=== PATIENT | female | born 1955 | race Caucasian/White ===

== ENCOUNTER 2017-05-15 06:20 | Inpatient (IN) | payer BC ==
--- NOTE | 2017-05-01 18:20 | HP ---
HISTORY AND PHYSICAL: DATE OF ADMISSION: 05/15/17 This is a history and physical for hospital admission at the main campus on 09/21. CHIEF COMPLAINT: Left knee pain. HISTORY OF PRESENT ILLNESS: This 62-year-old woman is admitted for a left total knee replacement. She has had severe knee pain for many many years and the left knee pain has become intolerable and this has been not responsive to any further nonoperative care. A left total knee replacement has been recommended. PAST MEDICAL HISTORY: Positive for hypertension, arthritis, ulcers with GERD and esophagitis, hypothyroidism, anemia, depression, anxiety and fibromyalgia. She has had breast cancer with mastectomies bilaterally, breast reductions years ago, cardiac catheterization in 1985, status post hysterectomy. She recently found out she has got cholelithiasis. She had a left renal cancer and left nephrectomy and is followed carefully for this. CURRENT MEDICATIONS: Include: 1. Turmeric. 2. Vitamins. 3. Magnesium. 4. Omeprazole. 5. Vitamin C. 6. Alprazolam 0.25 mg 1 a day. 7. Lisinopril 10 mg each day. 8. Oxycodone 7.5/325 mg 4 a day. 9. Thyroid replacement. ALLERGIES: MORPHINE, AMOXICILLIN, SULFA, CODEINE. In the past, she has had ampicillin and she has had Keflex without difficulty. I will plan to use cefazolin for her perioperative prophylaxis. She thinks she may be allergic to PAPER TAPE. Also, no history of stroke, no heart attack, no history of chest pain. PHYSICAL EXAMINATION GENERAL: Well nourished, overweight, not acutely distressed. Her walking gait , some limp bilaterally. HEENT: Head is NC/AT. LUNGS: Clear bilaterally. HEART: Regular. S1, S2 normal. No murmurs or gallops. ABDOMEN: Round, soft, nontender. There is no organomegaly. EXTREMITIES: Foot pulses are intact. Left dorsalis pedis pulses 2+. The left knee varus, incomplete extension, flexion 90 degrees, small effusion, stable ligaments. Thigh and calf were soft. NEUROLOGIC: Cranial nerves are grossly intact. DIAGNOSTIC STUDIES/LAB DATA: X-rays of the left knee show severe arthritis in the medial compartment, [id number], joint widening laterally, there is patellofemoral arthritis. IMPRESSION: Severe arthritis of the left knee with varus deformity. PLAN: Left total knee replacement. The plan will be for use of cefazolin for perioperative prophylaxis. Postoperatively, we will be utilizing aspirin for DVT prophylaxis. [id number]/[facility] #: [id number] [facility] CENTERDaphne
--- NOTE | 2017-05-10 16:07 | CONS ---
CC: Dr. Kitchen * NEPHROLOGY CONSULTATION: DATE OF CONSULT: 05/10/17 DATE OF ADMISSION: 05/15/17 HISTORY OF PRESENT ILLNESS: Ms. Trujillo is a 62-year-old female referred for consultation by Dr. Kitchen in anticipation of knee surgery on 05/15/17. She has a history of renal cell carcinoma, which was diagnosed in November of 2014 and she underwent a left nephrectomy. At the present time, other than her osteoarthritis, she is fairly asymptomatic. She does not have dysuria, frequency, urgency, or gross hematuria. Her history is significant in that she does have a history of nephrolithiasis in the past. She does try to maintain a good water intake. PAST MEDICAL HISTORY: Her previous medical history is significant in that she has a history of breast cancer which was treated by lumpectomy in 2003. She is status post a hysterectomy due to metromenorrhagia in 1985. She has a history of radiation to her face which produced hypothyroidism. She has a history of depression and anxiety. She has been noted to have glucose intolerance in the past. MEDICATIONS: Include: 1. Zanaflex 4 mg 3 times a day. 2. Levothyroxine 25 mcg daily. 3. Omeprazole 20 mg daily. 4. Vanderbilt 7.5/325 mg daily. 5. Vitamin D 1000 units daily. 6. Xanax 0.25 mg p.r.n. 7. She takes A-3 liver supplement, which she states has been very helpful to her in weight loss. 8. Lisinopril 10 mg daily. ALLERGIES: 1. She has an allergy to AMOXICILLIN, which produced diarrhea. 2. Apparently MORPHINE produces nausea. 3. SULFA medications produce swelling. 4. CECLOR produced a rash. 5. [employer] produced tongue and throat swelling. FAMILY HISTORY: Significant in that her father had diabetes mellitus. SOCIAL HISTORY: She previously was a smoker, but has quit. She does not use alcohol. REVIEW OF SYSTEMS: Reveals occasional episodes of urinary tract infection. She has no lightheadedness. No swallowing difficulties. No heat or cold intolerance. No chest pain. No shortness of breath. She does have gastroesophageal reflux disease. PHYSICAL EXAMINATION: She is a white female who appears quite comfortable. Her blood pressure is 136/78 with a pulse of 72. She is anicteric. Her extraocular muscles intact. Her mucous membranes are moist. Chest is clear. The heart revealed a regular rhythm without murmurs. The abdomen is obese, nontender. There is no organomegaly. Bowel sounds are positive. Bones, joints , extremities revealed no cyanosis, clubbing, or edema. DIAGNOSTIC STUDIES/LAB DATA: Normal serum electrolytes. Serum creatinine is 1.15. Her EGFR is 46.7; however, I was suspicious that this would be inaccurate and as a result we obtained a creatinine clearance, which is actually significantly better at 94.4 cc per minute. IMPRESSION: From a nephrologic point of view, I do not consider her to be at increased risk for her planned surgery in the future. She should obtain routine imaging of her remaining kidney because of the increased risk of contralateral renal cell carcinoma. At the present time, her blood pressure is adequately controlled and I seen no evidence of infectious or cardiovascular illness. [id number]/[facility] #: [id number] MTDD
[~2017-05-15 06:20] MED LIST: Buffered Lidocaine 0.9% SYRIN* 5 ML/SYR SYRINGE INTRADERM ONE; Buffered Lidocaine 0.9% SYRIN* 5 ML/SYR SYRINGE ONE; Famotidine IV* 10 MG/ML 2 ML (20 mg) IV ONE; Famotidine IV* 10 MG/ML 2 ML (20 mg) ONE; Gabapentin CAP(*) 300 MG ONE; Gabapentin CAP(*) 300 MG PO ONE; ceFAZolin 2 GM PREMIX(*) 2 GM/50 ML BAG IVPB ONE
[2017-05-15] MEDS ORDERED: Bupivacaine 0.5% W/EPI SDV* 10 ML VIAL INJ ONE ×2 (06:55)
[2017-05-15] MEDS ORDERED: Lidocaine 2% PF* 10 ML AMP ONE (07:18)
[2017-05-15] MEDS ORDERED: ROPIVACAINE 5 MG/ML 30 ML BTL (0.5%) ONE (07:18)
[2017-05-15] MEDS ORDERED: fentaNYL* 50 MCG/ML 2 ML VIAL (100 MCG VIAL) ONE ×5 (07:27→12:15)
[2017-05-15] MEDS ORDERED: Midazolam* 1 MG/ML 5 ML VIAL (5 MG) ONE (07:27)
[2017-05-15] MEDS ORDERED: KETAMINE HCL* 50 MG/ML 10 ML VIAL ONE (07:27)
[2017-05-15] MEDS ORDERED: Atracurium* 10 MG/ML 10 ML VIAL ONE (07:28)
[2017-05-15] MEDS ORDERED: Midazolam* 1 MG/ML 2 ML VIAL (2 MG) ONE (07:45)
[2017-05-15] MEDS ORDERED: Dexamethasone IV* 4 MG/ML 1 ML (4 MG) ONE (08:28)
[2017-05-15] MEDS ORDERED: DiMENhydriNATE IV* 50 MG/ML VIAL ONE (08:28)
[2017-05-15] MEDS ORDERED: Ketorolac INJ* 30 MG/ML 1 ML VIAL ONE (08:28)
[2017-05-15] MEDS ORDERED: Lidocaine 2% PF * 5 ML VIAL ONE (08:28)
[2017-05-15] MEDS ORDERED: Ondansetron INJ* 2 MG/ML VIAL ONE (08:28)
[2017-05-15] MEDS ORDERED: Propofol* 10 MG/ML 20 ML BTL IV PUSH ONE (08:28)
[2017-05-15] MEDS ORDERED: DiMENhydriNATE IV* 50 MG/ML VIAL IV PUSH PRN (08:53)
[2017-05-15] MEDS ORDERED: Gabapentin CAP(*) 100 MG PO ONE (08:57)
[2017-05-15] MEDS ORDERED: Magnesium Hydroxide LIQ* 30 ML UDC PO PRN (10:39)
[2017-05-15] MEDS ORDERED: Acetaminophen TAB* 325 MG PO PRN (10:39)
[2017-05-15] MEDS ORDERED: Ondansetron INJ* 2 MG/ML VIAL IV PRN (10:39)
[2017-05-15] MEDS ORDERED: diPHENhydraMINE IV* 50 MG/ML 1 ml VIAL (BENADRYL) IV PRN (10:39)
[2017-05-15] MEDS ORDERED: Morphine INJ* 2 MG/ML 1 ML SYRINGE IV PRN (10:39)
[2017-05-15] MEDS ORDERED: oxyCODONE TAB* 5 MG TAB PO PRN (10:50)
[2017-05-15] MEDS ORDERED: oxyCODONE/Acetamin 5/325 MG* TAB PO SCH (11:00)
[2017-05-15] MEDS: fentaNYL* 50 MCG/ML 2 ML VIAL (100 MCG VIAL) IV PRN ×2 (11:06→11:12)
--- NOTE | 2017-05-15 11:19 | RAD ---
HISTORY: Postop, knee arthroplasty COMPARISONS: March 19, 2017 VIEWS: 2, Frontal and lateral views of the left knee FINDINGS: BONE DENSITY: Normal. BONES: The patient is status post left knee arthroplasty. There is no hardware failure or osteolysis. JOINTS: The patient is status post left knee arthroplasty ALIGNMENT: There is no dislocation. SOFT TISSUES: There is postsurgical change to the soft tissues OTHER FINDINGS: None. IMPRESSION: STATUS POST LEFT KNEE ARTHROPLASTY
[2017-05-15] MEDS ORDERED: oxyCODONE/Acetamin 5/325 MG* TAB ONE (11:31)
[2017-05-15] MEDS: oxyCODONE/Acetamin 5/325 MG* TAB PO PRN ×2 (11:35→11:37)
[2017-05-15] MEDS: oxyCODONE TAB* 5 MG TAB PO PRN ×3 (14:01→23:54)
[2017-05-15] MEDS: ALPRAZolam TAB* 0.25 MG PO PRN ×2 (17:09→19:53)
[2017-05-15] MEDS: ceFAZolin VIAL(*) 1 GM in NS 0.9% 50 ML* 50 ML IVPB SCH ×2 (17:09→23:55)
[2017-05-15] MEDS ORDERED: tiZANidine TAB* 2 MG PO PRN (17:29)
[2017-05-15] MEDS: Aspirin TAB* 325 MG PO SCH (21:21)
[2017-05-15] MEDS: oxyCODONE/Acetamin 5/325 MG* TAB PO SCH (21:21)
[2017-05-15] MEDS: Ferrous Sulfate TAB* 325 MG PO SCH (21:21)
--- NOTE | 2017-05-16 01:47 | OP ---
CC: Dr. Price * DATE OF OPERATION: 05/15/17 - ROOM #343 DATE OF : 53 SURGEON: Ap Kitchen MD ASSISTANTS: 1. GUTIERREZ Bravo, development assistant 2. Marly Villarreal, surgical services asst ANESTHESIOLOGIST: Dr. Ester Giraldo ANESTHESIA: Endotracheal tube general and prior to that a left adductor canal block, left thigh. PRE-OPERATIVE DIAGNOSIS: Severe arthritis of the left knee with a varus deformity. POST-OPERATIVE DIAGNOSIS: Severe arthritis of the left knee with a varus deformity. OPERATIVE PROCEDURE: Left total knee replacement with Anthony Persona knee was utilized, posterior stabilized type with a small peg on the tibial component, all components cemented, a size 5 femur, a 32 patella, a C tibia, and a 10 articular surface. COMPLICATIONS: There were no complications. DRAINS: Two blood collection drains left in the knee at the end of the case. ESTIMATED BLOOD LOSS: 200 mL. REPLACEMENT: Crystalloid fluids. INDICATIONS: Severe arthritis of the left knee with varus deformity that has been no longer responsive to nonoperative care. DESCRIPTION OF PROCEDURE: The patient was brought to the operating room and placed on the operating table in the supine position. The left Papito's canal block was done by Dr. Giraldo and then a general anesthetic with an endotracheal tube was administered by Dr. Giraldo. A Dougherty catheter was then inserted, the left leg was wrapped with a proximal thigh tourniquet. The dorsalis pedis pulses noted to be 2+. The left leg was given a preliminary chlorhexidine prep and then a formal prep from the tourniquet to the tips of the toes and we draped free and carefully sealed off in the usual fashion for arthroplasty of the knee. We did our universal protocol time-out confirming Virginia Best and a plan for left total knee replacement. We all agreed and we proceeded. The surgical care was done largely without tourniquet with the knee acutely flexed and the foot on a padded foot piece. The skin was divided from two fingerbreadths proximal to the superior pole of the patella to the medial aspect of the tibial tubercle. Skin and subcu divided down to the deep fascia. Throughout the case careful hemostasis was checked and achieved utilizing electrocautery. The knee was entered medial parapatellar and the medial release included staying subperiosteally after going down to the bone just medial to the tibial tubercle. We stayed subperiosteally on the tibia going around to the deep MCL and then to the posterior medial corner of the knee. The knee had clear goldish synovial fluid. There was complete eburnation of bone medial femoral condyle, medial tibial plateau, osteophytes there and osteophytes in the intercondylar notch, large osteophytes on the trochlea and the patella with near full thickness cartilage loss on patella and some cartilage loss in the lateral joint. The remains of the anterior horn medial meniscus were excised. Synovectomy was completed around the patella. The patella was made so that it could be everted. The ACL and PCL were uplifted from their femoral origins. The tibia was made so that it could be subluxated forward from under the femur. The distal anterior femur was exposed subperiosteally for referencing and measuring and the lateral meniscus was carefully excised with careful hemostasis at the periphery of the lateral meniscus for the lateral geniculate. After these preparations, the proximal tibial cut was made first. Our goal here was to have a tibial surface that would have a slight posterior slope and be perpendicular to the long axis of the tibia removing a centimeter or a centimeter plus laterally and a millimeter or two medially. The femoral intramedullary drill was utilized to open the canal. The femoral canal was suctioned to discourage embolization. The distal femoral cutting guide was applied on 2 with 6 degrees of valgus and the distal femoral cut was completed. The extension gap was good with a 10 block. The femur was then measured for a 5 and the chamfering and anterior posterior cuts were completed. We then finished removal of posterior osteophytes, PCL, posterior horn medial meniscus carefully preserving the MCL, posterior horn lateral meniscus and posterior osteophyte lateral femoral condyle. We had excellent ligamentous balance in flexion of 90 degrees with a 10 block and an extension with a 10 block. The femur was then completed with the intercondylar cutout and anchoring holes. The tibia was completed for the size C. The knee was articulated and extended with a C tibia, 10 articular surface, 5 femur with full knee extension, stable ligaments in extension and stable ligaments in 90 degrees of flexion. The femoral canal was cleaned x6 with saline, suctioned empty and a bone plug inserted. The patella was cut flat, a 32 was chosen, anchoring holes were made and then undercut. A lateral release was not necessary. The final components were then checked and opened. The knee was irrigated. The leg was exsanguinated. The tourniquet elevated. The knee was irrigated in extension with 2 L of pulsed saline irrigation. The knee was then flexed, retractors were put into place and the knee was irrigated in flexion to clean all the bone for cement. All surfaces were cleaned with a pulsed saline, dried. The cement was mixed and the components were cemented into position, patella followed by tibia followed by femur. Each was impacted, excess cement was removed and the knee was articulated and extended during the final hardening. We checked posteriorly for retained bone fragments. The tourniquet was deflated, we checked for bleeding points, we irrigated with saline several times during the closure. The pericapsular tissues were infiltrated with Marcaine 0.5% with epinephrine posteromedially, medially and laterally. Careful closure was done. The quad mechanism was closed with interrupted #1 Polysorb in figure-of-8 fashion. The same with the medial retinaculum and distally we used 0 Polysorb. The drains were brought out through the superolateral and suprapatellar pouch. The deep fascia was closed with 0 Polysorb, superficial subcu closed with 3-0 Polysorb and staple closed. Skin was closed with sanjay. The knee was extended completely, flexed well past 90 degrees multiple times during the closure. The dressing was applied after washing and drying with Betadine-soaked release, sterile gauze, sterile Webril, cryotherapy cuff, ABD pads, and a 6-inch Brandon bandage loosely applied. The knee had full extension, flexion well past 115 degrees and the dorsalis pedis pulse was 2+ at the end of the case. The patient was returned to the hospital bed in the recovery room in stable and satisfactory condition having tolerated the procedure very well. [id number]/[facility] #: [id number] SALLIE
[2017-05-16] MEDS: oxyCODONE/Acetamin 5/325 MG* TAB PO SCH ×3 (05:45→21:06)
[2017-05-16] MEDS: Levothyroxine TAB* 25 MCG TAB PO SCH (05:46)
[2017-05-16 05:58] LABS: Hematocrit 25 % (35-47); Hemoglobin 8.5 g/dl (12.0-16.0)
[2017-05-16 06:15] LABS: BUN/Creatinine Ratio 16.9 (8-20); Calcium 8.1 mg/dL (8.6-10.3); EGFR African American 56.2 (>60); EGFR Non-African American 43.7 (>60); Potassium 4.6 mmol/L (3.5-5.0)
--- NOTE | 2017-05-16 06:34 | PTEDU ---
Patient Name: JESSICA MARIA JESSICA MARIA selected video: Total Knee Replacement to view on 05/16/2017 at 6:33:30 AM from [id number]
--- NOTE | 2017-05-16 06:45 | PTEDU ---
Patient Name: JESSICA MARIA JESSICA MARIA selected video: Kidney Stones to view on 05/16/2017 at 6:44:29 AM from [email or web address]
--- NOTE | 2017-05-16 06:53 | PTEDU ---
Patient Name: JESSICA MARIA JESSICA MARIA selected video: Gallbladder Removal Laparoscopic to view on 05/16/2017 at 6:51:54 AM from [email or web address]
--- NOTE | 2017-05-16 07:02 | PTEDU ---
Patient Name: JESSICA MARIA CANDACEROSHAN XIONGLI selected video: Hypothyroidism to view on 05/16/2017 at 7:02:06 AM from [email or web address]
[2017-05-16] MEDS: ceFAZolin VIAL(*) 1 GM in NS 0.9% 50 ML* 50 ML IVPB SCH (08:00)
[2017-05-16] MEDS: Omeprazole CAP* 20 MG PO SCH (08:51)
[2017-05-16] MEDS: Ferrous Sulfate TAB* 325 MG PO SCH ×2 (08:51→21:06)
[2017-05-16] MEDS: Aspirin TAB* 325 MG PO SCH ×2 (08:51→21:06)
[2017-05-16] MEDS: Vitamin THERAPEUTIC TAB PO SCH (08:51)
[2017-05-16] MEDS: oxyCODONE TAB* 5 MG TAB PO PRN ×2 (15:36→20:03)
[2017-05-16] MEDS: Magnesium Hydroxide LIQ* 30 ML UDC PO SCH (21:07)
[2017-05-17] MEDS: oxyCODONE TAB* 5 MG TAB PO PRN ×6 (03:55→22:21)
[2017-05-17] MEDS: oxyCODONE/Acetamin 5/325 MG* TAB PO SCH ×3 (05:15→21:01)
[2017-05-17] MEDS: Levothyroxine TAB* 25 MCG TAB PO SCH (05:16)
[2017-05-17 07:20] LABS: Hematocrit 30 % (35-47); Hemoglobin 10.2 g/dl (12.0-16.0)
[2017-05-17 07:23] LABS: Comments Flag Yes
[2017-05-17] MEDS: Omeprazole CAP* 20 MG PO SCH (08:03)
[2017-05-17] MEDS: Aspirin TAB* 325 MG PO SCH ×2 (08:03→21:01)
[2017-05-17] MEDS: Ferrous Sulfate TAB* 325 MG PO SCH ×2 (08:04→21:01)
[2017-05-17] MEDS: Vitamin THERAPEUTIC TAB PO SCH (08:04)
[2017-05-17] MEDS: Magnesium Hydroxide LIQ* 30 ML UDC PO SCH ×3 (08:08→21:02)
[2017-05-17] MEDS ORDERED: Bisacodyl SUPP* 10 MG SUPP PR PRN (10:42)
[2017-05-18] MEDS: oxyCODONE TAB* 5 MG TAB PO PRN ×2 (02:27→08:14)
[2017-05-18] MEDS: Levothyroxine TAB* 25 MCG TAB PO SCH (05:44)
[2017-05-18] MEDS: oxyCODONE/Acetamin 5/325 MG* TAB PO SCH ×2 (05:44→13:06)
[2017-05-18 06:42] LABS: Comments Flag Yes; Hematocrit 31 % (35-47); Hemoglobin 10.4 g/dl (12.0-16.0)
[2017-05-18] MEDS: Ferrous Sulfate TAB* 325 MG PO SCH (08:14)
[2017-05-18] MEDS: Omeprazole CAP* 20 MG PO SCH (08:14)
[2017-05-18] MEDS: Aspirin TAB* 325 MG PO SCH (08:14)
[2017-05-18] MEDS: Vitamin THERAPEUTIC TAB PO SCH (08:14)
[2017-05-18] MEDS: Magnesium Hydroxide LIQ* 30 ML UDC PO SCH (08:16)
--- NOTE | 2017-05-18 09:38 | PN ---
Progress Note - Progress Note Date of Service: 05/18/17 SOAP: Subjective: 62 y/o female s/p L TKA by Dr. Kitchen 05/15/2017. Patient states feeling better after transfusion. c/o being "shaky" at times, pain well controlled, followed by pain clinic at home. VSS overnight, afebrile. Objective: General- Well appearing, NAD resting in bed comfortably MSK- Incision C/D/I, no erythema noted, mild ecchymosis. mild swelling around knee, calf, neg homans b/l, + DF/PF, PT2+ b/l, sensation grossly intact to light touch LLE. Vital Signs Temp 99.3 F 05/18/17 08:04 Pulse 87 05/18/17 08:04 Resp 18 05/18/17 08:14 BP 138/74 05/18/17 08:04 Pulse Ox 100 05/18/17 08:04 Intake & Output 05/17/17 05/18/17 05/18/17 18:59 06:59 18:59 Intake Total 600 600 120 Output Total 650 1650 200 Balance -50 -1050 -80 Intake: Oral 600 600 120 Output: Urine 650 1650 200 Other: # Bowel Movements 0 Laboratory Results - last 24 hr 05/18/17 06:21 Hgb 10.4 L Hct 31 L Assessment: Stable 62 y/o female s/p L TKA by Dr. Kitchen 05/15/2017. Plan: - DVT prophylaxis with ASA 325 BID. Discussed importance with patient to take full dose - Continue PT/ OT - Likely D/C today if cleared by PT - Follow up with Dr. Kitchen within 4-6 weeks Active Medications Generic Name Dose Route Start Last Admin Trade Name Freq PRN Reason Stop Dose Admin Acetaminophen 650 mg 05/15/17 10:39 Tylenol Tab* PO Q4H PRN PAIN OR TEMPERATURE Alprazolam 0.25 mg 05/15/17 10:47 05/15/17 19:53 Xanax Tab* PO 0.25 mg TID PRN Administration ANXIETY Aspirin 325 mg 05/15/17 21:00 05/18/17 08:14 Aspirin Tab* PO 325 mg BID NANDA Administration Bisacodyl 10 mg 05/17/17 10:42 05/17/17 11:13 Dulcolax Supp* NM 10 mg DAILY PRN Administration CONSTIPATION Diphenhydramine HCl 25 mg 05/15/17 10:39 Benadryl Iv* IV Q6H PRN itching or sleep Ferrous Sulfate 325 mg 05/15/17 21:00 05/18/17 08:14 Ferrous Sulfate Tab* PO 325 mg BID NANDA Administration Lactated Ringer's 1,000 mls @ 100 mls/hr 05/15/17 11:00 Lactated Ringers 1000 Ml Bag* IV PER RATE NANDA Levothyroxine Sodium 25 mcg 05/16/17 06:00 05/18/17 05:44 Synthroid Tab* PO 25 mcg 0600 NANDA Administration Magnesium Hydroxide 30 ml 05/15/17 10:39 Milk Of Magnesia Liq* PO Q6H PRN constipation Magnesium Hydroxide 30 ml 05/16/17 21:00 05/18/17 08:16 Milk Of Magnesia Liq* PO Not Given BID NANDA Morphine Sulfate 2 mg 05/15/17 10:39 Morphine Inj (Syringe)* IV Q2H PRN PAIN - SEVERE Multivitamins 1 tab 05/16/17 09:00 05/18/17 08:14 Theragran Tab* PO 1 tab DAILY NANDA Administration Omeprazole 20 mg 05/16/17 09:00 05/18/17 08:14 Prilosec Cap* PO 20 mg DAILY NANDA Administration Ondansetron HCl 4 mg 05/15/17 10:39 Zofran Inj* IV Q6H PRN nausea Oxycodone HCl 10 mg 05/15/17 10:50 05/18/17 08:14 Roxycodone Tab* PO 10 mg Q4H PRN Administration PAIN - MODERATE TO SEVERE Oxycodone HCl 5 mg 05/15/17 10:50 Roxycodone Tab* PO Q4H PRN PAIN - MILD TO MODERATE Oxycodone/Acetaminophen 1.5 tab 05/15/17 21:00 05/18/17 05:44 Percocet 5/325 Tab* PO 1.5 tab 0500,1300,2100 NANDA Administration Tizanidine HCl 6 mg 05/15/17 17:29 05/15/17 19:52 Zanaflex Tab* PO 6 mg BID PRN Administration muscle spasm
[2017-05-18 12:13] VITALS: BP 116/54
--- NOTE | 2017-05-20 22:14 | DS ---
Discharge Summary Date of Admission: 05/15/2017 Date of Discharge: 05/18/2017 Provider: Dr. Kitchen Principle Diagnosis: Left knee pain Secondary Diagnoses: See H&P Principle procedure: left total knee arthroplasty Consultations: physical therapy, occupation therapy, and medicine HPI: Refer to H&P Hospital Course: The patient was admitted on 05/15/2017 and underwent a left total knee replacement. She tolerated the procedure well and there were no complications. The patient had general anesthesia and was quite comfortable in the immediate postoperative period. On POD#1 the patient had symptomatic anemia with a H&H was 8.5 and 25 and was transfused with 1 unit. Dressing was CDI, she was neurovascularly intact with good sensation distal to her left knee. She could demonstrate dorsi and plantar flexion with good strength. Participation in physical and occupational therapy was begun. Pain management was adequate with oxycodone and her home medication. On POD#2 the urinary catheter was discontinued and the patient was able to void spontaneously. The dressing was changed and the wound was found to be benign with minimal drainage and erythema. Vital signs were stable and the patient was afebrile. POD#3 bowel and bladder had normalized and the patient was cleared by physical therapy for safe discharge to home with services. She will continue with the exercises learned with physical therapy and arrangements were made for visiting home physical therapy as well. At discharge the H&H was 10.4 and 31. vital signs were stable. The patient was discharged with a prescription for aspirin 325mg BID. The patient will resume the home medications as indicated in the discharge instructions. Florence and/or sutures will be removed in 10-14 days. Medications at discharge: ALPRAZolam TAB* [Xanax TAB*] 0.25 mg PO TID PRN 12/26/12 [History Confirmed 09/21] Levothyroxine TAB* [Synthroid 25 MCG TAB*] 25 mcg PO DAILY 12/26/12 [History Confirmed 05/15/17] Omeprazole CAP* [Prilosec CAP* 20 MG] 20 mg PO DAILY 12/26/12 [History Confirmed 05/15/17] Tizanidine HCl 4 mg PO BID 07/05/16 [History Confirmed 05/01/17] Tizanidine HCl 6 mg PO BID PRN 07/05/16 [History Confirmed 05/15/17] Ascorbic Acid TAB* [Vitamin C TAB*] 500 mg PO DAILY PRN 08/24/16 [History Confirmed 05/15/17] Multiple Vitamin [Multivitamins] 1 cap PO DAILY 02/09/17 [History Confirmed 09/21] Acetaminophen TAB* [Tylenol TAB*] 650 mg PO Q4H PRN #0 tab 05/18/17 [Rx] Aspirin TAB* [Aspirin 325 MG TAB*] 325 mg PO BID #0 tab 05/18/17 [Rx] Ferrous Sulfate TAB* 325 mg PO BID tab 05/18/17 [Rx] oxyCODONE TAB* [Roxycodone TAB 5 mg*] 5 mg PO Q4H PRN #0 tab MDD 12 tablets [Rx] Percocet 7.5/325mg four times a day Condition: Stable Disposition: Home with home health PT and PT/INR draws on Sunday and Follow up: Patient will follow up with Dr. Kitchen in 4-6 weeks at [facility] Orthopedics Vital Signs Temp 98.1 F 05/18/17 11:44 Pulse 72 05/18/17 11:44 Resp 18 05/18/17 13:06 BP 116/54 05/18/17 11:44 Pulse Ox 97 05/18/17 11:44 05/18/17 06:21 Hgb 10.4 L Hct 31 L
--- NOTE | 2017-05-21 04:05 | DS ---
DISCHARGE SUMMARY: DATE OF ADMISSION: 05/15/17 DATE OF DISCHARGE: 05/18/17 ATTENDING PROVIDER: Dr. Ap Kitchen * (DICTATED BY GUTIERREZ AMBROSE) CHIEF COMPLAINT: 1. Left knee pain. 2. Hypertension. 3. Arthritis. 4. Ulcers with GERD and esophagitis. 5. Hypothyroidism. 6. Anemia. 7. Depression. 8. Anxiety. 9. Fibromyalgia. 10. History of breast cancer, with mastectomies bilaterally. 11. History of left renal cell cancer, status post left nephrectomy. DISCHARGE DIAGNOSES: 1. Left total knee replacement. 2. Hypertension. 3. Arthritis. 4. Ulcerations with gastroesophageal reflux disease and esophagitis. 5. Hypothyroidism. 6. Anemia. 7. Depression. 8. Anxiety. 9. Fibromyalgia. 10. History of breast cancer, status post bilateral mastectomies. 11. History of renal cell cancer, status post left nephrectomy. PROCEDURE: Left total knee replacement. CONSULTATIONS: 1. Physical Therapy. 2. Occupational Therapy. 3. Medicine. BRIEF HISTORY: Ms. Best is a very pleasant 62-year-old female with severe end- stage degenerative osteoarthritis of the left knee, who failed conservative treatment and elected to undergo a left total knee arthroplasty on 05/15/[address] Ap Kitchen. HOSPITAL COURSE: Ms. Best was admitted to [facility] on 05/15/17 , where she underwent a left total knee arthroplasty, which was uncomplicated. Postoperatively, she recovered on the surgical short stay unit. On postoperative day 2, her Dougherty was removed and the patient was voiding on her own without difficulty. She was restarted on her home medications. On postoperative day 1, the patient was noted to be symptomatically anemic with an H and H of 8.5 and 25 and she was transfused 1 unit. Afterwards, the patient states that her symptoms resolved. She advanced appropriately with physical therapy and occupational therapy. Her DVT prophylaxis was managed with aspirin 325 mg b.i.d. By postoperative day 3, she was orthopedically and medically stable for discharge to go home with home services. PHYSICAL EXAMINATION: In general, the patient is alert and oriented, in no acute distress, lying in bed comfortably. Vital signs on date of discharge, temperature of 99.3, pulse 87, respirations 18, blood pressure 138/74, pulse oxygenation 100% on room air. Examination of the left lower extremity shows that the incision was clean, dry, and intact. There is no erythema noted, mild ecchymosis in the distal incision. Mild swelling around the knee and calf. Negative Homans' sign bilaterally. Positive dorsiflexion and plantar flexion in the left lower extremity. Posterior tibial pulses 2+ bilaterally. Sensation grossly intact to light touch bilateral lower extremities. Dressing replaced. Staple is intact. DIAGNOSTIC STUDIES/LAB DATA: On date of discharge H and H of 10.4 and 31. Radiographs: Postoperative films taken 05/15/17 of the left knee demonstrates a left knee arthroplasty in satisfactory position. DISCHARGE MEDICATIONS: 1. Xanax 0.25 mg p.o. t.i.d. 2. Tylenol 650 mg p.o. q.4 hours p.r.n. 3. Aspirin 325 mg b.i.d. 4. Iron 325 mg p.o. b.i.d. 5. Levothyroxine 25 mcg daily. 6. Prilosec 20 mg p.o. daily. 7. Roxicodone 5 mg 1 to 2 tablets every 4 to 6 hours as needed for pain. 8. Vitamin C supplementation 500 mg p.o. daily. 9. Multivitamin daily. 10. Tizanidine 10 mg p.o. b.i.d. 11. Oxycodone/acetaminophen 7.5/325 one tablet four times daily. CONDITION ON DISCHARGE: Stable. DISCHARGE INSTRUCTIONS: Ms. Best is a very pleasant 62-year-old female postoperative day 3 status post left total knee replacement, which is uncomplicated. She is orthopedically and medically stable for discharge to go home with home services. Her labs and vital signs are stable. She will restart her home medications as she will take aspirin 325 mg p.o. b.i.d. for DVT prophylaxis. She will remain weightbearing as tolerated on the left lower extremity. Continue the physical therapy instructions as shown in the hospital. She will have physical therapy and visiting home nurse services at the home approximately twice a week and will have her sanjay removed in approximately 10 to 14 days. She will follow up with Dr. Kitchen in approximately 4 to 6 weeks. She was instructed to go to the ER immediately if she develops chest pain or shortness of breath, and to call the office with any fever, increasing redness, or tenderness around the incision line. GUTIERREZ AMBROSE [id number]/[facility] #: [id number] SALLIE
== END 2017-05-18 14:45 | disposition home health service (06) | DRG 302 ==
LOC: AA 06:20 → SSU 12:30
PROVIDERS: ADMIT Orthopaedic Surgery; ATTEND Orthopaedic Surgery
PROC: 0SRD0J9 Replacement of Left Knee Joint with Synthetic Substitute, Cemented, Open Approach (ICD-10-PCS; principal; 2017-05-15 07:30)
PROC: 30233N1 Transfusion of Nonautologous Red Blood Cells into Peripheral Vein, Percutaneous Approach (ICD-10-PCS; 2017-05-16)
DX: M17.12 Unilateral primary osteoarthritis, left knee (principal); D62 Acute posthemorrhagic anemia; I10 Essential (primary) hypertension; Z68.41 Body mass index [BMI] 40.0-44.9, adult; Z79.82 Long term (current) use of aspirin; Z90.13 Acquired absence of bilateral breasts and nipples; Z90.710 Acquired absence of both cervix and uterus; Z85.3 Personal history of malignant neoplasm of breast; F32.9 Major depressive disorder, single episode, unspecified; F41.9 Anxiety disorder, unspecified; K21.9 Gastro-esophageal reflux disease without esophagitis; E03.9 Hypothyroidism, unspecified; M79.7 Fibromyalgia; Z85.53 Personal history of malignant neoplasm of renal pelvis; Z90.5 Acquired absence of kidney; Z88.5 Allergy status to narcotic agent; Z88.2 Allergy status to sulfonamides; Z88.0 Allergy status to penicillin; E66.3 Overweight; Z91.048 Other nonmedicinal substance allergy status; M21.162 Varus deformity, not elsewhere classified, left knee; Z87.442 Personal history of urinary calculi; Z87.891 Personal history of nicotine dependence; Z83.3 Family history of diabetes mellitus; Z91.041 Radiographic dye allergy status; Z87.440 Personal history of urinary (tract) infections; Z98.1 Arthrodesis status; J45.909 Unspecified asthma, uncomplicated; G47.33 Obstructive sleep apnea (adult) (pediatric); E11.9 Type 2 diabetes mellitus without complications
CPT/HCPCS: 36415; 80048; 85014; 85018; 86850; 86900; 86901; 86922; 94760; 97530; A9270-GY; C1776; J0690; J1100; J1240; J1885; J2001; J2250; J2405; J2704; J2795; J3010; P9040

== ENCOUNTER 2019-07-14 17:06 | Inpatient (IN) | payer OTHER ==
--- OUTSIDE RECORDS SUMMARY | 2019-07-14 17:19 | XMS REPORT | Continuity of Care Document ---
:1955 External Reference #:[id number] Author Name Yeny Chance NP (transmitted by agent of provider Mayte Dai) Address [address], [address] [place] [address] Care Team Providers Name Role Phone Roberto Price MD - Internal Care Team Information Contour Stitcher [phone] Medicine Stephanie Hernández FNP - Family Care Team Information Contour Stitcher Lily Priest MD - Family Care Team Information Contour Stitcher Medicine Problems Active Problems Provider Date Hypothyroidism Reina Varn, N.P. Onset: 11/08/2011 Carcinoma in situ of breast Reina Varn, N.P. Onset: 11/08/2011 Myalgia & Myositis Unspecified Reina Varn, N.P. Onset: 11/08/2011 Chronic pain Reina Varn, N.P. Onset: 11/08/2011 Kidney stone Reina Varn, N.P. Onset: 11/08/2011 Personal history of primary Reina Varn, N.P. Onset: 04/15/2012 malignant neoplasm of breast Obstructive sleep apnea of adult Ester Gonsalves DNP, RN, Onset: 11/05/2005 PET RESORT CONCIERGE-BC Note: Records unavailable for NPSG Localized, primary osteoarthritis Ap Kitchen M.D. Onset: 03/19/2017 Social History Type Date Description Comments Sex Unknown ETOH Use Denies alcohol use Tobacco Use Start: Unknown End: Patient is a former smoker Unknown Smoking Status Reviewed: 07/09/19 Patient is a former smoker Exercise Type/Frequency Does not exercise Allergies, Adverse Reactions, Alerts Active Allergies Reaction Severity Comments Date Morphine 11/08/2011 Sulfa 11/08/2011 Codeine 03/19/2017 Tape 09/25/2017 Cefaclor 09/25/2017 Amoxicillin 09/25/2017 Inactive Allergies NKDA 11/08/2011 Medications Active Medications SIG Qnty Indications Ordering Provider Date Clindamycin HCL take two tabs one 2caps Abi Anand, 05/29/2019 300mg hour prior to M.D. Capsules dental work Oxycodone-Acetaminoph 1 by mouth every Unknown 10/17/2015 en 6 hours as needed 7.5-325mg Tablets pain Omeprazole 1 po qd 30caps Reina Perez, 05/15/2012 20mg N.P. Capsules Synthed Take One Tablet 90tabs Joanne Potts, 07/20/2010 25mcg Tablets By Mouth Every M.D., FACP Day Lisinopril 1 by mouth every Unknown 10mg Tablets day Alprazolam one by mouth up 2tabs Unknown 0.25mg to three times Tablets daily as needed for anxiety Magnesium 1 by mouth twice Unknown 400mg Tablets a day Multi For Her once a day otc Unknown Capsules Tizanidine HCL Chicas, 6mg ERVIN Andujar Capsules Vitamin D3 1 by mouth every Unknown 2000Iu day Tablets CBD Oil Unknown Immunizations CPT Code Status Date Vaccine Lot # [id number] Given 11/08/2011 Influenza Virus 3Yrs & Over [id number] Given 10/25/2009 Influenza Virus Vaccine, Pandemic Formulation 67448 Given 10/25/2009 Administration Swine Flu Shot 14064 Given 07/23/2009 Influenza Virus 3Yrs & Over 39804 Given 11/06/2008 Tdap - Tetanus/Diptheria/Acellular Pertussis 04768 Given 11/06/2008 Influenza Virus 3Yrs & Over Vital Signs Date Vital Result Comment 07/09/2019 2:18pm Height 60.25 inches 5'0.25" Weight 220.00 lb Heart Rate 76 /min BP Systolic Sitting 126 mmHg Rue large cuff BP Diastolic Sitting 78 mmHg Rue large cuff Respiratory Rate 12 /min O2 % BldC Oximetry 98 % BMI (Body Mass Index) 42.6 kg/m2 06/05/2018 2:11pm Height 60.25 inches 5'0.25" Weight 220.00 lb Heart Rate 63 /min BP Systolic Sitting 130 mmHg Lue large cuff BP Diastolic Sitting 70 mmHg Lue large cuff Respiratory Rate 12 /min O2 % BldC Oximetry 97 % BMI (Body Mass Index) 42.6 kg/m2 Results Description No Information Available Procedures Date Code Description Status 07/14/2010 27800511 Mammogram Completed 07/13/2009 [id number] Bone Mineral Density Test Completed 07/13/2009 [id number] Mammogram Completed Medical Devices Description No Information Available Encounters Description No Information Available Assessments Date Code Description Provider 07/09/2019 G47.33 Obstructive sleep apnea (adult) (pediatric) Yeny Chance NP Plan of Treatment 07/09/2019 - Yeny Chance NPG47.33 Obstructive sleep apnea (adult) ( pediatric)Follow up:1 yearRecommendations:If you have difficulty with your equipment, or need to replace your mask or hoses, please contact your homecare agency. If you have any further questions, please call the [facility] at [phone] If you have any sleepiness while driving you MUST avoid operating a vehicle or machinery. If you feel tired while driving head well puller and take a nap or switch drivers. If you know you are sleepy and need to go somewhere, arrange for a ride or use public transportation. It is very important to not risk your safety or the safety of others. Functional Status Description No Information Available Mental Status Description No Information Available Referrals Description No Information Available
[2019-07-14 17:54] LABS: ABS Lymphocytes 1.1 10^3/ul (1.0-4.8); ABS Monocytes 0.4 10^3/ul (0-0.8); ABS Neutrophils 3.3 10^3/ul (1.5-7.7); Eosinophil % 0.9 %; Hematocrit 37 % (35-47); Hemoglobin 12.9 g/dL (12.0-16.0); Lymphocyte % 22.3 %; Mean Corpuscular HGB Conc 35 g/dL (31-36); Mean Corpuscular Hemoglobin 32 pg (27-31); Mean Corpuscular Volume 91 fL (80-97); Mean Platelet Volume 9.8 fL (7.4-10.4); Platelet Count 137 10^3/uL (150-450); Red Blood Count 4.07 10^6 /uL (3.70-4.87); Red Cell Distribution Width 15 % (10-15); White Blood Count 4.8 10^3/uL (3.5-10.8)
[2019-07-14 18:24] LABS: Albumin 4.3 g/dL (3.2-5.2); Albumin/Globulin Ratio 1.7 (1-3); BUN/Creatinine Ratio 23.2 (8-20); C Reactive Protein 10.12 mg/L (<8.01); Calcium 9.4 mg/dL (8.6-10.3); EGFR African American 71.4 (>60); Globulin 2.5 g/dL (2-4); Potassium 4.2 mmol/L (3.5-5.0); Total Bilirubin 3.6 mg/dL (0.2-1.0); Total Protein 6.8 g/dL (6.4-8.9)
[2019-07-14 20:52] LABS: Urine Appearance Clear; Urine Bilirubin Negative (Negative); Urine Blood Negative (Negative); Urine Color Yellow; Urine Glucose Negative (Negative); Urine Ketones Negative (Negative); Urine Nitrite Negative (Negative); Urine Protein Negative (Negative); Urine Specific Gravity 1.003 (1.010-1.030); Urine Urobilinogen Negative (Negative)
[2019-07-14] MEDS ORDERED: Piperacillin/Tazobac ADVAN(*) 3.375 GM in NS 0.9% 100 ML* 100 ML IVPB ONE (21:36)
[2019-07-14] MEDS ORDERED: Acetaminophen TAB* 325 MG PO PRN (22:49)
[2019-07-14] MEDS ORDERED: Zosyn per Pharmacy* NOTE FOLLOW UP SCH (23:00)
[2019-07-14] MEDS: oxyCODONE/Acetamin 5/325 MG* TAB PO SCH (23:50)
--- NOTE | 2019-07-15 00:53 | HP ---
CC: Rosa Wood NP.* HISTORY AND PHYSICAL: DATE OF ADMISSION: 07/14/19 PROVIDER: Albertina Sosa NP. ATTENDING PHYSICIAN WHILE IN THE HOSPITAL: Minal Lott MD * (dictated by Albertina Sosa NP). PRIMARY CARE PROVIDER: Rosa Wood NP. CHIEF COMPLAINT: Right upper quadrant abdominal pain. HISTORY OF PRESENT ILLNESS: Ms. Best is a 64-year-old female with past medical history significant for hypertension, history of acid reflux, hypothyroid, anemia, depression, anxiety, fibromyalgia, history of breast cancer status post mastectomy, history of renal cell carcinoma status post left nephrectomy, history of sleep apnea, who presented to the emergency room with complaints of upper abdominal pain feeling like a band going across her upper abdomen. The patient reports that she was watching TV yesterday. During the day, she did not eat lunch. She does report that she did have some chocolate milk and then had a 100% fruit bar in the evening that was pineapple. She does report that she ate at approximately 8:30 p.m. and at approximately 9 p.m., she developed abdominal pain like a band going across her upper abdomen. She felt bloated and gassy. She reports that the pain did increase with deep breath. The patient reports that she lied down at approximately 9:30. She was unable to go to sleep. She was up and down all night and felt uneasy and uncomfortable. She reports that at approximately 3 a.m., she took antacids without relief, and at 4:30, she took milk of magnesia 2 doses. She does report that she had some relief after that and was able to sleep from 8:30 this morning until 11:30 this morning. She woke up at 11 again feeling continued to have upper abdominal pain , feeling uncomfortable, and uneasy. She felt bloated, pressure in her upper abdomen, and achy. She contacted her primary care provider with no response. When her returned home from work, she presented to the emergency room for further evaluation. The patient does report that she had right upper quadrant abdominal pain and achy feeling approximately 4 to 5 days ago. She does report that subsided on its own but did last for several hours. She does not report increased pain associated with food intake. She does report that the milk of magnesia did make the pain better. While in the emergency room, the patient had routine lab work drawn. She had a gallbladder ultrasound which showed cholelithiasis and mildly dilated common bile duct. Due to these findings, Hospital Medicine was called and asked to see and evaluate the patient for admission. PAST MEDICAL HISTORY: Significant for: 1. Hypertension. 2. GERD. 3. Hypothyroid. 4. Anemia. 5. Depression. 6. Anxiety. 7. Fibromyalgia. 8. History of breast cancer, status post bilateral mastectomy. 9. Left renal cell carcinoma, status post left nephrectomy. 10. Sleep apnea, on BiPAP at home. PAST SURGICAL HISTORY: 1. Breast reduction. 2. Bilateral mastectomy. 3. Cardiac catheterization in 1985. 4. Hysterectomy. 5. Left nephrectomy. 6. Left total knee. 7. x2. HOME MEDICATIONS: Includes: 1. Lisinopril 10 mg p.o. daily. 2. Omeprazole 20 mg p.o. daily. 3. Levothyroxine 25 mcg p.o. daily. 4. Lidocaine patch 1 to 2 patches transdermally daily. 5. Hydrocodone/acetaminophen 1 tablet 4 times a day as needed for pain. 6. Tizanidine 6 mg p.o. t.i.d. p.r.n. 7. Oxycodone dose is 7.5/325 mg. ALLERGIES: The patient has allergy to CECLOR, IODINE CONTRAST, SULFA, BACTRIM, AMOXICILLIN, CODEINE, and MORPHINE. FAMILY HISTORY: Father with an CA in his 60s, mother with a stroke and diabetes. Sister with reported breast cancer. SOCIAL HISTORY: The patient reports that she smoked for approximately 10 years , she quit in 1995. During that 10-year time span, she smoked a pack to a pack- and-a-half a day. She does report rare alcohol intake. Denies any illicit drug use. She is disabled. She is . Surrogate decision maker in the event she is unable to make her own decision is her . She is a full code. REVIEW OF SYSTEMS: She denies any fever, chills, or unintended weight loss. Denies any chest pain, edema, cough, or hemoptysis. Denies any shortness of breath. No nausea, vomiting, or diarrhea. She does report upper epigastric pain that is pressure, bloating, aching type sensation. It is worse with palpation and movement. Does improve with milk of magnesia. No gross hematuria , dysuria, focal weakness, or sensory loss. Denies any visual complaints, dysphagia, arthralgias, or myalgias more than baseline. Denies any rashes, lesions, or psychosis. She does report that she has been feeling depressed. PHYSICAL EXAMINATION GENERAL: At this time, Ms. Best is a 64-year-old female. She is obese, alert, and oriented, resting on the stretcher in the emergency room. She is in no acute distress. VITAL SIGNS: Blood pressure 164/95, heart rate is 75, respirations 17, O2 saturation 97%, temperature is 98.6. HEENT: Head is atraumatic, normocephalic. Eyes: EOMs are intact. Sclerae anicteric and not pale. Oral mucosa appears to be moist. NECK: Supple. LUNGS: Clear to auscultation bilaterally. No wheezes, rales, or rhonchi. CARDIAC: S1, S2. Regular rate and rhythm. No murmurs, rubs, or gallops. ABDOMEN: Soft. She does have upper epigastric tenderness and right upper quad tenderness with palpation. She does have positive Lagos sign. Bowel sounds are present x4. EXTREMITIES: Pedal pulses are +2 bilaterally. There is no clubbing or cyanosis. SKIN: Intact. NEUROLOGIC: She is awake, alert, and oriented x3. Speech is clear. Thought process is intact. There are no gross focal deficits. LABORATORY DATA AND DIAGNOSTIC STUDIES: WBCs are 4.8, RBCs 4.07, hemoglobin 12.9, hematocrit 37, platelet count 137. Sodium 139, potassium 4.2, chloride 105, carbon dioxide 27, anion gap of 7, BUN was 22, creatinine 0.95, glucose was 142, lactic acid 1.1, calcium 9.4, total bilirubin was 3.60, AST was 185, ALT was 202, alkaline phosphatase was 138. C-reactive protein was 10.12, lipase was 19. Urine was within normal limits with the exception specific gravity was 1.003. S he had an ultrasound of her gallbladder, radiologist's impression: There are echogenic calculi in the gallbladder lumen consistent with cholelithiasis. No abnormal gallbladder wall thickening. Technologist noted tenderness over the area of the gallbladder. Therefore, likely positive sonographic Lagos sign raising suspicion for acute cholecystitis. There is mild biliary dilation of the common bile duct measuring 7 mm in diameter and no visible choledocholithiasis. ASSESSMENT AND PLAN: Ms. Best is a 64-year-old female with past medical history significant for hypertension, hypothyroid, history of anemia, depression , anxiety, fibromyalgia, history of breast cancer, history of renal cell carcinoma, status post left nephrectomy; who presented to the emergency room with right upper quadrant abdominal pain. She will be admitted under observation for: 1. Right upper quadrant abdominal pain. I suspect this is related to cholecystitis. The patient does have mildly dilated common bile duct. I did speak to Dr. Arevalo from Gastroenterology, who saw the patient in consultation , who has recommended an MRCP that has been ordered. I also spoke to Dr. Perston from Surgery who will again see the patient in consultation. The patient did receive Zosyn 3.375 g in the emergency room. We will continue Zosyn IV. She will be n.p.o. after midnight for studies in the morning. I will place her on normal saline at 75 cc per hour. I will repeat a CBC and CMP in the a.m. 2. Hypertension. The patient should continue her lisinopril 10 mg as previously prescribed. 3. Acid reflux. She should continue on omeprazole 20 mg as previously prescribed. 4. Hypothyroid. The patient should continue on Levothyroxine 25 mcg p.o. daily as previously prescribed. 5. Chronic pain. The patient should continue on her oxycodone 7.5/325 mg 1 tablet q.4 hours as needed for pain and tizanidine 6 mg at bedtime. 6. FEN: The patient will be n.p.o. after midnight for diagnostic exams. 7. Code status: She is a full code. 8. DVT prophylaxis: I will place her on SCDs as the patient is a pending candidate for surgery. TIME SPENT: Time spent on this admission was 60 minutes, greater than half that time was spent at the bedside reviewing the events leading thus far to her hospitalization, performing the physical exam, and reviewing my plan of care. I have discussed this with my attending Dr. Minal Lott, she is in agreement with my plan. ALBERTINA SOSA, COST COORDINATOR [id number]/[facility] #: [id number] [facility] HOSPITALDaphne
[2019-07-15] MEDS: ZOSYN 3.375 GM Q8H per EXTENDED INFUSION IVPB SCH ×6 (01:17→18:25)
[2019-07-15] MEDS: NS 0.9% 1000 ML** 1,000 ML IV SCH ×2 (01:23→20:39)
[2019-07-15] MEDS: oxyCODONE/Acetamin 5/325 MG* TAB PO SCH ×3 (06:02→18:24)
[2019-07-15] MEDS: Levothyroxine TAB* 25 MCG TAB PO SCH (06:03)
[2019-07-15 06:31] LABS: ABS Eosinophils 0.1 10^3/ul (0-0.6); ABS Lymphocytes 1.3 10^3/ul (1.0-4.8); ABS Monocytes 0.4 10^3/ul (0-0.8); ABS Neutrophils 3.7 10^3/ul (1.5-7.7); Eosinophil % 1.1 %; Hematocrit 35 % (35-47); Hemoglobin 12.3 g/dL (12.0-16.0); Lymphocyte % 22.6 %; Mean Corpuscular HGB Conc 35 g/dL (31-36); Mean Corpuscular Hemoglobin 32 pg (27-31); Mean Corpuscular Volume 91 fL (80-97); Mean Platelet Volume 10.4 fL (7.4-10.4); Nucleated Red Blood Cells % 0.1; Platelet Count 128 10^3/uL (150-450); Red Blood Count 3.87 10^6 /uL (3.70-4.87); Red Cell Distribution Width 15 % (10-15); White Blood Count 5.5 10^3/uL (3.5-10.8)
[2019-07-15 06:42] LABS: INR 1.04 (0.82-1.09)
[2019-07-15 06:55] LABS: Albumin/Globulin Ratio 1.5 (1-3); Calcium 9.2 mg/dL (8.6-10.3); EGFR African American 59.1 (>60); EGFR Non-African American 48.8 (>60); Globulin 2.6 g/dL (2-4); HDL Cholesterol 46.6 mg/dL; Total Bilirubin 3.2 mg/dL (0.2-1.0); Total Protein 6.6 g/dL (6.4-8.9)
[2019-07-15] MEDS: Lisinopril TAB* 10 MG PO SCH (08:38)
[2019-07-15] MEDS: Pantoprazole TAB * 40 MG TAB PO SCH (08:38)
[2019-07-15] MEDS: Lidocaine PATCH 5%* 1 PATCH TRANSDERM SCH (08:53)
--- NOTE | 2019-07-15 11:56 | PN ---
Subjective Date of Service: 07/15/19 Interval History: 64 y/o F with h/o HTN, Hypothyroidism, Anemia, Depression, Esophageal spasm, Breast ca s/p mastectomy, RCC s/p left nephrectomy with right renal nephrolothiasis presented with upper abdominal pain. FOund to have cholelithiasis and abnormal LFT. At present complains of nausea. NO abdominal pain, vomiting or fever. Feels better. Objective Active Medications: Acetaminophen (Tylenol Tab*) 650 mg PO Q4H PRN PRN Reason: MILD PAIN or TEMP > 100.4 Al Hydrox/Mg Hydrox/Simethicone (Maalox Plus*) 30 ml PO Q6H PRN PRN Reason: INDIGESTION Sodium Chloride (Ns 0.9% 1000 Ml) 1,000 mls @ 75 mls/hr IV PER RATE [facility] Last Admin: 07/15/19 01:23 Dose: 75 mls/hr Piperacillin Sod/Tazobactam (Sod 3.375 gm/ Sodium Chloride) 100 mls @ 25 mls/ hr IVPB Q8H [facility] Last Admin: 07/15/19 10:24 Dose: 25 mls/hr Levothyroxine Sodium (Synthroid Tab*) 25 mcg PO 0600 [facility] Last Admin: 07/15/19 06:03 Dose: 25 mcg Lidocaine (Lidoderm 5% Patch*) 1 patch TRANSDERM DAILY [facility] Last Admin: 07/15/19 08:53 Dose: 1 patch Lisinopril (Prinivil Tab*) 10 mg PO DAILY [facility] Last Admin: 07/15/19 08:38 Dose: 10 mg Oxycodone/Acetaminophen (Percocet 5/325 Tab*) 1 tab PO Q6HR [facility] Last Admin: 07/15/19 06:02 Dose: 1 tab Pantoprazole Sodium (Protonix Tab*) 40 mg PO DAILY [facility] Last Admin: 07/15/19 08:38 Dose: 40 mg Pharmacy Consult (Zosyn Per Pharmacy*) 1 note FOLLOW UP .ZOSYN PER PHARMACY [facility] Pharmacy Profile Note (Lidocaine Patch Remove*) 1 note PATCH OFF 2100 [facility] Vital Signs - 8 hr 07/15/19 07/15/19 06:02 11:02 Respiratory 18 16 Rate Oxygen Devices in Use Now: None Exam: Patient is lying on a bed with no any acute distress. HEEnT: Normocephalic and atraumatic Lungs: CLear vesicular sound heard with no any added sounds. Heart: S1/S2 heard with no any murmur or rubs Abdomen: Soft, Mild tenderness on epigastric and RUQ region with no any rebound tenderness. Lagos sign negative. EXtremity: Normal with no any swelling, clubbing or cyanosis. Neuro: Alert, conscious and oriented. Moving all four extremity. Result Diagrams: 07/15/19 05:59 07/15/19 05:59 Assess/Plan/Problems-Billing Assessment: 64 y/o F with h/o HTN, Hypothyroidism, Anemia, Depression, Esophageal spasm, Breast ca s/p mastectomy, RCC s/p left nephrectomy with right renal nephrolithiasis presented with upper abdominal pain. Found to have cholelithiasis on MRCP and also has cholestatic LFT pattern. - Patient Problems (1) Cholelithiasis Current Visit: Yes Status: Acute Comment: Has abdominal pain and nausea with RUq and epigastric tenderness. Lagos was negative. Found to have cholelithiasis on US and MRCP. Abnormal LFTs. COuld be due to acute cholecystitis or biliary colic. Surgery consultation done. Will see patient and decide upon surgery. GI consulted. No any active intervention from GI side. On zosyn. Will repeat LFT. (2) HTN (hypertension) Current Visit: Yes Status: Acute Code(s): I10 - ESSENTIAL (PRIMARY) HYPERTENSION SNOMED Code(s): 00058983 Comment: Was high on presentation. Now well controlled. Continue lisinopril 10 mg (3) Hypothyroid Current Visit: Yes Status: Acute Code(s): E03.9 - HYPOTHYROIDISM, UNSPECIFIED SNOMED Code(s): 71503785 Comment: On levothyroxine 25 mcg. (4) DVT prophylaxis Current Visit: Yes Status: Acute Code(s): Z29.9 - ENCOUNTER FOR PROPHYLACTIC MEASURES, UNSPECIFIED SNOMED Code(s): 862694959 Comment: ON SCD (5) Full code status Current Visit: Yes Status: Acute Code(s): Z78.9 - OTHER SPECIFIED HEALTH STATUS SNOMED Code(s): 065734738 Status and Disposition: Inpatient. Attending: Deepali Breen Attestation Documenting Resident: Yakelin Turner Supervising Physician: Yue Breen Attestation: This service has been performed in part by a resident under the direction of a teaching physician.I, Yue Breen, performed the service, or was physically present during the critical, or vitale portions of the service, furnished by the resident. I participated in the management of the patient.
--- NOTE | 2019-07-15 19:06 | CONS ---
CC: Rosa Wood NP, [facility] * SURGICAL CONSULT NOTE: DATE OF CONSULT: 07/15/19 ATTENDING SURGEON: Barber Burt MD CHIEF COMPLAINT: Abdominal pain. HISTORY OF PRESENT ILLNESS: This is a 64-year-old female with multiple medical problems who experienced a brief episode of midepigastric achiness about 4 to 5 days ago in the middle of the night. This subsided fairly quickly until Sunday evening; after eating a fruit bar, she noticed a tight band-like sensation across the upper abdomen. It felt like gas and she was unable to find a comfortable position all night. She had some slight nausea, but no vomiting. She did not have any fever or chills. She did take some milk of magnesia with improvement, though continued to feel uncomfortable and subsequently presented to the emergency department. Her pain at peak was 10/10, but as of the morning of consult, it is down to 2/10. She still complains of some achy and gassy discomfort in the upper abdomen and particularly the right upper quadrant. She also noted that her urine was dark yesterday; it seems to have lightened up today. Her last bowel movement was Sunday evening and described as normal. She denies any diarrhea. She did have prior similar symptoms a number of years ago and has had known gallstones since that time, but was not recommended for surgery at that point. PAST MEDICAL HISTORY: Includes: 1. Hypertension. 2. GERD. 3. Hypothyroidism (on replacement). 4. Anxiety and depression. 5. Fibromyalgia. 6. Chronic pain (primarily low back). 7. Obstructive sleep apnea, on BiPAP. 8. History of left breast cancer (see below). 9. Renal cell carcinoma, status post left nephrectomy. PAST SURGICAL HISTORY: Previous surgeries include: 1. Bilateral mastectomies with prior bilateral breast reduction and postmastectomy implant with removal and replacement of left breast implant. 2. Left nephrectomy as noted above. 3. Left total knee arthroplasty. 4. x2. 5. Subtotal hysterectomy for benign disease. 6. Cardiac catheterization in 1985, which she states was a normal study. 7. Lumbar spinal fusion with nerve stimulator placement and eventual removal. 8. She had also undergone radiation therapy for a pigmented facial lesion as a child. CURRENT MEDICATIONS: Include: 1. Lisinopril. 2. Omeprazole. 3. Levothyroxine. 4. Lidocaine patch. 5. Tizanidine. 6. Oxycodone (7.5/325 four times a day). DRUG ALLERGIES: Include CODEINE (GI side effects), MORPHINE (GI side effects), CECLOR (the patient does not recall reaction), AMOXICILLIN (diarrhea), SULFA ( swelling), IV CONTRAST (mouth swelling and skin peeling). FAMILY HISTORY: Positive for gallbladder disease in numerous family members. It is negative for anesthesia problems, bleeding, or clotting disorder. SOCIAL HISTORY: The patient is . She is not currently working and has been on disability. She is a former smoker of 1 to 1-1/2 packs per day for 10 years, she quit in 1995. She drinks alcohol rarely. She denies any other recreational drug use. REVIEW OF SYSTEMS: General: No recent constitutional symptoms or acute illnesses other than per the HPI. HEENT: She had a recent tooth infection for which she was prescribed an antibiotic, which resulted in some loose stool for 2 weeks. This has since resolved. Cardiovascular: No chest pain, palpitations , or recent history of heart murmur. Respiratory: No history of asthma, chronic cough, or shortness of breath. GI: As above per HPI. I did not enquire about colonoscopy. : No problems reported other than dark urine. Musculoskeletal: She is anticipating a right total knee arthroplasty in the coming months though that is not specifically scheduled yet. Neuro/Psych: She has chronic pain and fibromyalgia as well as a history of anxiety and depression. PHYSICAL EXAMINATION: Height 5 feet 1 inch, weight 219 pounds, BMI 41.5. Temperature 97.1, blood pressure 113/72, pulse 60, respirations 16, room air saturation 99%. General: Well- nourished, obese female, in no acute distress. She appears comfortable. Skin: Warm and dry. No suspicious rashes or lesions noted. HEENT: Pupils are equal , round, and reactive. EOMs intact. No conjunctival pallor or scleral icterus. Oropharynx: Mucous membranes moist. No intraoral lesions. Neck: No lymphadenopathy, thyromegaly, or masses. Heart: Regular rate and rhythm. No murmur appreciated. Lungs: Clear to auscultation. No rales or wheezes. Breasts: Not examined. Abdomen: Well-healed laparoscopic and lower midline and Pfannenstiel incisions. Bowel sounds are present. Abdomen is soft with tenderness limited to the midepigastric and right upper quadrant areas where there is mild to moderate tenderness. There is no rebound, palpable masses, or guarding. Genitalia and Rectal: Not done. Back: No CVA tenderness. Extremities: No edema. She has lidocaine patches in place. DIAGNOSTIC STUDIES/LAB DATA: Of note, white blood cell count 5,500, hemoglobin 12.3, platelets 128. Electrolytes are normal. Creatinine mildly elevated at 1.12. Total bilirubin on admission 3.6 with repeat 3.2; AST on admission 185, down to 121; ALT on admission 202, down to 173; alkaline phosphatase unchanged at 138 to 142. CRP mildly elevated at 10. Lipase is normal at 19. Ultrasound on admission showed gallstones, possible positive sonographic Lagos' s sign, and a common bile duct measuring 7 mm, but without evidence of common bile duct stone. IMPRESSION: Symptomatic cholelithiasis with possible choledocholithiasis. PLAN: Agree with admission for IV hydration and n.p.o. status. She is currently receiving Zosyn and an MRCP is pending. If that is negative for choledocholithiasis, she may proceed to laparoscopic cholecystectomy assuming that she remains clinically stable. If the MRCP is positive, she will require ERCP. Case was discussed with Dr. Burt as well as the medical attending (Dr. Cummins and Dr. Breen). GUTIERREZ TAVAREZ [id number]/[facility] #: [id number] SALLIE
[2019-07-15] MEDS: Lidocaine Patch REMOVE* 1 NOTE MISC PATCH OFF SCH (20:52)
[2019-07-16] MEDS: oxyCODONE/Acetamin 5/325 MG* TAB PO SCH ×4 (00:09→18:41)
[2019-07-16] MEDS: ZOSYN 3.375 GM Q8H per EXTENDED INFUSION IVPB SCH ×4 (02:14→10:10)
[2019-07-16] MEDS: Levothyroxine TAB* 25 MCG TAB PO SCH (05:52)
[2019-07-16 06:33] LABS: Albumin 3.5 g/dL (3.2-5.2); Albumin/Globulin Ratio 1.5 (1-3); BUN/Creatinine Ratio 17.1 (8-20); Calcium 8.2 mg/dL (8.6-10.3); EGFR African American 63.6 (>60); EGFR Non-African American 52.6 (>60); Globulin 2.4 g/dL (2-4); Potassium 3.8 mmol/L (3.5-5.0); Total Bilirubin 1.6 mg/dL (0.2-1.0); Total Protein 5.9 g/dL (6.4-8.9)
--- NOTE | 2019-07-16 09:18 | PN ---
Subjective Date of Service: 07/16/19 Interval History: No acute overnight event. Vitals stable. Bilirubin and LFt decreasing. No any complaint at present. No abdominal pain, nausea, vomitng. Had BM yesterday. Scheduled for cholecystectomy today. Objective Active Medications: Acetaminophen (Tylenol Tab*) 650 mg PO Q4H PRN PRN Reason: MILD PAIN or TEMP > 100.4 Al Hydrox/Mg Hydrox/Simethicone (Maalox Plus*) 30 ml PO Q6H PRN PRN Reason: INDIGESTION Sodium Chloride (Ns 0.9% 1000 Ml) 1,000 mls @ 75 mls/hr IV PER RATE [facility] Last Admin: 07/15/19 20:39 Dose: 75 mls/hr Piperacillin Sod/Tazobactam (Sod 3.375 gm/ Sodium Chloride) 100 mls @ 25 mls/ hr IVPB Q8H [facility] Last Admin: 07/16/19 02:14 Dose: 25 mls/hr Levothyroxine Sodium (Synthroid Tab*) 25 mcg PO 0600 [facility] Last Admin: 07/16/19 05:52 Dose: 25 mcg Lidocaine (Lidoderm 5% Patch*) 1 patch TRANSDERM DAILY [facility] Last Admin: 07/15/19 08:53 Dose: 1 patch Lisinopril (Prinivil Tab*) 10 mg PO DAILY [facility] Last Admin: 07/15/19 08:38 Dose: 10 mg Oxycodone/Acetaminophen (Percocet 5/325 Tab*) 1 tab PO Q6HR [facility] Last Admin: 07/16/19 05:51 Dose: 1 tab Pantoprazole Sodium (Protonix Tab*) 40 mg PO DAILY [facility] Last Admin: 07/15/19 08:38 Dose: 40 mg Pharmacy Consult (Zosyn Per Pharmacy*) 1 note FOLLOW UP .ZOSYN PER PHARMACY [facility] Pharmacy Profile Note (Lidocaine Patch Remove*) 1 note PATCH OFF 2100 [facility] Last Admin: 07/15/19 20:52 Dose: 1 note Vital Signs - 8 hr 07/16/19 07/16/19 07/16/19 02:17 03:15 05:51 Temperature 97.9 F Pulse Rate 62 Respiratory 18 20 20 Rate Blood Pressure 112/56 (mmHg) O2 Sat by Pulse 98 Oximetry Oxygen Devices in Use Now: None Exam: Patient is lying on a bed with no any distress. HEENT: Normocephalic and atraumatic. Lungs: Clear veiscular sound heard with no any murmur. Heart: S1/S2 heard with no any murmur. Abdomen: Soft, nondistended and non tender. Normal BS present. Extremity: No any swelling or cyanosis and clubbing. Neuro: ALert, conscious and oriented. Moving all four extremity. Result Diagrams: 07/15/19 05:59 07/16/19 05:34 Assess/Plan/Problems-Billing Assessment: 64 y/o F with h/o HTN, Hypothyroidism, Anemia, Depression, Esophageal spasm, Breast ca s/p mastectomy, RCC s/p left nephrectomy with right renal nephrolithiasis presented with upper abdominal pain. Found to have cholelithiasis on MRCP and also has cholestatic LFT pattern(normalizing). Undergoing chlocystectomy today, from a medical standpoint she is cleared to be dc afterwards - Patient Problems (1) Cholelithiasis Current Visit: Yes Status: Acute Comment: Found to have cholelithiasis on US and MRCP. Abnormal LFTs(decreasing). Surgery consultation done. Cholecystectomy today, she may be d/c from a medical standpoint afterwards GI consulted. No any active intervention from GI side. On zosyn( day 2), outptabxifneededcanbedecided by Surgery on d/c (2) HTN (hypertension) Current Visit: Yes Status: Acute Code(s): I10 - ESSENTIAL (PRIMARY) HYPERTENSION SNOMED Code(s): 81019381 Comment: Was high on presentation. Now well controlled. Continue lisinopril 10 mg (3) Hypothyroid Current Visit: Yes Status: Acute Code(s): E03.9 - HYPOTHYROIDISM, UNSPECIFIED SNOMED Code(s): 96386497 Comment: On levothyroxine 25 mcg. (4) DVT prophylaxis Current Visit: Yes Status: Acute Code(s): Z29.9 - ENCOUNTER FOR PROPHYLACTIC MEASURES, UNSPECIFIED SNOMED Code(s): 460501132 Comment: ON SCD (5) Full code status Current Visit: Yes Status: Acute Code(s): Z78.9 - OTHER SPECIFIED HEALTH STATUS SNOMED Code(s): 097652904 Status and Disposition: Will defer to surgery, she may be d/c at their discretion, Medicine will sign off. Attending: Deepali Breen Attestation Documenting Resident: Yakelin Turner Supervising Physician: Deepali Breen Attestation: This service has been performed in part by a resident under the direction of a teaching physician.I, Deepali Breen, performed the service, or was physically present during the critical, or vitale portions of the service, furnished by the resident. I participated in the management of the patient.
[2019-07-16] MEDS: Pantoprazole TAB * 40 MG TAB PO SCH (10:09)
[2019-07-16] MEDS: Lisinopril TAB* 10 MG PO SCH (10:09)
[2019-07-16] MEDS: Lidocaine PATCH 5%* 1 PATCH TRANSDERM SCH (10:10)
[2019-07-16] MEDS ORDERED: Midazolam* 1 MG/ML 5 ML VIAL (5 MG) ONE (14:15)
[2019-07-16] MEDS ORDERED: fentaNYL* 50 MCG/ML 2 ML VIAL (100 MCG VIAL) ONE (14:15)
[2019-07-16] MEDS ORDERED: Bupivacaine 0.5%* 50 ML MDV VIAL ONE (15:04)
[2019-07-16] MEDS ORDERED: Rocuronium* 10 MG/ML VIAL ONE (15:15)
[2019-07-16] MEDS ORDERED: Dexamethasone IV* 4 MG/ML 1 ML (4 MG) ONE (15:38)
[2019-07-16] MEDS ORDERED: Propofol* 10 MG/ML 20 ML BTL ONE (15:38)
[2019-07-16] MEDS ORDERED: Lidocaine 2% PF * 5 ML VIAL ONE (15:38)
[2019-07-16] MEDS ORDERED: Ondansetron INJ* 2 MG/ML VIAL ONE (15:38)
[2019-07-16] MEDS ORDERED: DiMENhydriNATE IV* 50 MG/ML VIAL ONE (15:38)
[2019-07-16] MEDS ORDERED: Ketorolac INJ* 30 MG/ML 1 ML VIAL ONE (15:38)
[2019-07-16] MEDS ORDERED: Acetaminophen IV 1GM/100ML * 100 ML ONE (15:51)
[2019-07-16] MEDS ORDERED: Sugammadex * 500 MG/5 ML VIAL IV PUSH ONE (16:04)
--- NOTE | 2019-07-16 16:23 | BRIEFOPN ---
Brief Operative/Procedure Note - Operation Details Pre-Op Diagnosis: symptomatic cholelithiasis Post-Op Diagnosis: same Procedures: laparoscopic cholecystectomy Surgeon(s)/Proceduralists: Lucinda. Assist: GUTIERREZ Reddy Anesthesia: GET Estimated Blood Loss: < 50 ml; Fluids: 1 liter LR Findings: as above Specimen(s)/Culture(s) Description: gallbladder Complications: none
[2019-07-16] MEDS ORDERED: HYDROmorphone INJ1* 1 MG/ML SYRINGE ONE ×2 (16:24→17:10)
--- NOTE | 2019-07-16 16:26 | BRIEFOPN ---
Brief Operative/Procedure Note - Operation Details Pre-Op Diagnosis: biliary colic; cholelithiasis Post-Op Diagnosis: same Procedures: laparoscopic cholecystectomy Surgeon(s)/Proceduralists: Lucinda;. Assist: GUTIERREZ Reddy Anesthesia: GET Estimated Blood Loss: < 50 ml; IVF: 1 liter LR Findings: as above Specimen(s)/Culture(s) Description: gallbladder Complications: none
[2019-07-16] MEDS ORDERED: Naloxone* 0.4 MG/ML 1 ML VIAL IV PRN (16:40)
[2019-07-16] MEDS ORDERED: oxyCODONE/Acetamin 5/325 MG* TAB PO PRN (16:40)
[2019-07-16] MEDS ORDERED: DiMENhydriNATE IV* 50 MG/ML VIAL IV PUSH PRN (16:40)
[2019-07-16] MEDS: HYDROmorphone INJ1* 1 MG/ML SYRINGE IV PRN ×2 (17:11→17:30)
[2019-07-16] MEDS ORDERED: oxyCODONE/Acetamin 5/325 MG* TAB ONE (17:45)
[2019-07-16] MEDS: NS 0.9% 1000 ML** 1,000 ML IV SCH (19:26)
[2019-07-16] MEDS: Lidocaine Patch REMOVE* 1 NOTE MISC PATCH OFF SCH (21:32)
[2019-07-16] MEDS: Heparin VIAL(*) 5000 UNITS/ML VIAL (FIVE THOUSAND) SUBCUT SCH (21:50)
--- NOTE | 2019-07-16 22:55 | OP ---
DATE OF OPERATION: 07/16/19 - ROOM #334 DATE OF : 53 ATTENDING SURGEON: Crescencio Jane MD. DYE LINE OPERATOR: GUTIERREZ Young. PRE-OP DIAGNOSIS: Cholecystitis. POST-OP DIAGNOSIS: Cholecystitis. OPERATIVE PROCEDURE: Laparoscopic cholecystectomy. INDICATIONS: Symptomatic gallstone/cholecystitis. Risks including, but not limited to bleeding, infection, injury to intraabdominal contents including the bowel; bile duct; liver, and other were explained to the patient, who seemed to understand and agreed to the procedure and all questions were answered. DESCRIPTION OF PROCEDURE: In the operating room, under general endotracheal anesthesia, in the supine position with preoperative antibiotics given, time- out was performed after the abdomen was prepped and draped in a sterile fashion. This indicated the correct patient and correct procedure. A 5 mm trocar was placed in the subxiphoid position under direct visualization of the camera using a bladeless Optiview trocar. Pneumoperitoneum was achieved at 15 mmHg. Camera was placed in the abdomen and the abdomen was scanned. There was no obvious injury from trocar placement. An umbilical trocar and 2 right-sided 5 mm trocars were placed. The fundus of the gallbladder was grasped and retracted up and over the liver. The cystic duct was identified, isolated, clipped, and divided. The cystic artery was identified, isolated, clipped, and divided. The gallbladder was removed from the hepatic bed using Bovie cautery hook. It was placed into an Endobag and removed through the umbilical port site. The right upper quadrant was irrigated and aspirated dry. An oozing spot in the hepatic bed was cauterized with Bovie cautery. The omentum was placed in the hepatic bed after evaluating and making sure the clips were in place. There was no bleeding. Pneumoperitoneum was released from the abdomen. The trocars were removed. The midline umbilical fascia was closed with an 0 Vicryl suture. The skin was closed with Monocryl. Glue was applied to the skin. She tolerated the procedure well. She was extubated and taken to recovery in stable condition. [id number]/[facility] #: [id number] MTDD
--- NOTE | 2019-07-16 23:38 | ED ---
Abdominal Pain/Female - HPI Summary HPI Summary: Patient complains of sudden onset upper right side abdominal pain, nausea, chills, decreased by mouth intake starting tonight. Patient states she had a similar episode 5 nights ago in the middle the night which resolved by morning. Pain is worse with food. Denies fever, cough, sore throat, CP, SOB, V/V range in urine, change in BM, vaginal symptoms. Medical history is right kidney cancer, prior breast cancer, HTN. Abdominal surgical history is C- section 2, partial hysterectomy, right kidney removal, left breast removal. - History of Current Complaint Chief Complaint: EDAbdPain Stated Complaint: ABD AND SIDE PAIN PER PT Time Seen by Provider: 07/14/19 18:05 Hx Obtained From: Patient Onset/Duration: Sudden Onset Timing: Constant Severity Initially: Severe Severity Currently: Severe Pain Intensity: 8 Pain Scale Used: 0-10 Numeric Location: Discrete At: RUQ, Epigastric Radiates: No Character: Sharp, Cramping, Colicy Aggravating Factor(s): Food Alleviating Factor(s): Nothing Associated Signs and Symptoms: Positive: Decreased Appetite, Nausea Allergies/Adverse Reactions: Allergies Allergy/AdvReac Type Severity Reaction Status Date / Time cefaclor [From Ceclor] Allergy Unknown Verified 07/14/19 18:23 Reaction Details Iodinated Contrast Media Allergy See Comment Verified 07/14/19 18:23 Sulfa (Sulfonamide Allergy Swelling Verified 07/14/19 18:23 Antibiotics) sulfamethoxazole Allergy Unknown Verified 07/14/19 18:23 [From Bactrim] Reaction Details trimethoprim [From Bactrim] Allergy Unknown Verified 07/14/19 18:23 Reaction Details amoxicillin AdvReac Diarrhea Verified 07/14/19 18:23 codeine AdvReac Nausea And Verified 07/14/19 18:23 Vomiting morphine AdvReac Vomiting Verified 07/14/19 18:23 Home Medications: Home Medications Lidocaine PATCH 5%* [Lidoderm 5% Patch*] 1 - 2 patch TRANSDERM DAILY 07/14/19 [ History Confirmed 07/14/19] Lisinopril TAB* [Prinivil TAB*] 10 mg PO DAILY 07/14/19 [History Confirmed 07/14] Oxycodone HCl/Acetaminophen [Percocet] 1 tab PO QID PRN MDD 4 tabs 07/14/19 [ History Confirmed 07/14/19] tiZANidine TAB* [Zanaflex TAB*] 6 mg PO TID PRN 07/14/19 [History Confirmed 07/24] PMH/Surg Hx/FS Hx/Imm Hx Endocrine/Hematology History: Reports: Hx Thyroid Disease, Hx Anemia Denies: Hx Diabetes Cardiovascular History: Reports: Hx Hypertension, Hx Rheumatic Fever - A CHILD, Hx Valvular Heart Disease - Hx OF MITRAL VALVE, Other Cardiovascular Problems/Disorders - cardiac cath Denies: Hx Pacemaker/ICD Respiratory History: Reports: Hx Asthma, Hx Sleep Apnea Denies: Hx Chronic Obstructive Pulmonary Disease (COPD) Comment Only: Other Respiratory Problems/Disorders - Hx OF SMOKING: QUIT 1994 GI History: Reports: Hx Gastroesophageal Reflux Disease, Hx Hiatal Hernia, Hx Irritable Bowel, Other GI Disorders - GERD, ESPHOGEAL SPASMS History: Reports: Hx Kidney Stones, Hx Renal Disease, Other Problems/ Disorders - 11/2014 LEFT KIDNEY REMOVED, CANCER Denies: Hx Dialysis Musculoskeletal History: Reports: Hx Arthritis - ALL OVER, Other Musculoskeletal History - DJD OF SPINE Denies: Hx Back Problems Sensory History: Reports: Hx Cataracts, Hx Contacts or Glasses Denies: Hx Hearing Aid Opthamlomology History: Reports: Hx Cataracts, Hx Contacts or Glasses Neurological History: Denies: Hx Dementia, Hx Seizures Psychiatric History: Reports: Hx Anxiety - xanax, Hx Depression - ON MEDICATION Denies: Hx Panic Disorder, Other Psychiatric Issues/Disorders - Cancer History Cancer Type, Location and Year: BREAST. KIDNEY - LT Hx Chemotherapy: No Hx Radiation Therapy: Yes - Surgical History Surgery Procedure, Year, and Place: LUMBAR, SPINAL FUSION 1999;. LEFT NEPHRECTOMY (CANCER) 11/17/14 in [place];. HYSTERCTOMY 1980;. D&C- 1973;. X2 C SECTION 1974 & 1978;. HEART CATH- NO STENTING;. (MULTIPLE BILAT BREAST SURGERIES. ELECTIVE BREAST REDUCTION, MASTECTOMY (CANCER) Lt 2003; Rt BREAST, LUMPECTOMY, BILATERAL BREAST RECONSTRUCTION 1994 WITH IMPLANTS, REVISION OF RECONSTRUCTION 2004 BILATERAL SALINE IMPLANTS;. DORSAL COLUMN STIMULATOR WITH DR. MILLAN 2015 - REMOVAL OF ENTIRE STIMULATOR AND WIRES [facility] DR. MILLAN. KNEE REPLACEMENT LEFT KNEE [facility];. FACIAL RADIATION FOR BENIGN BIRTHMARK ON FACE; Hx Anesthesia Reactions: No Infectious Disease History: No Infectious Disease History: Denies: Traveled Outside the [place] in Last 30 Days - Family History Known Family History: Positive: Non-Contributory - Social History Alcohol Use: Rare Alcohol Amount: 6-10 year Substance Use Type: Reports: None Smoking Status (MU): Former Smoker Type: Cigarettes Amount Used/How Often: 1PPD 10 YRS Have You Smoked in the Last Year: No Review of Systems Constitutional: Negative Eyes: Negative ENT: Negative Cardiovascular: Negative Respiratory: Negative Positive: Abdominal Pain, Nausea Genitourinary: Negative Musculoskeletal: Negative Skin: Negative Neurological: Negative Psychological: Normal All Other Systems Reviewed And Are Negative: Yes Physical Exam - Summary Physical Exam Summary: Tenderness to palpation in epigastrium and right upper quadrant. Abdominal exam otherwise unremarkable. Triage Information Reviewed: Yes Vital Signs On Initial Exam: Initial Vitals Temp Pulse Resp BP Pulse Ox 98.6 F 67 18 165/91 97 07/14/19 17:08 07/14/19 17:08 07/14/19 17:08 07/14/19 17:08 07/14/19 17:08 Vital Signs Reviewed: Yes Appearance: Positive: Well-Appearing Skin: Positive: Warm Head/Face: Positive: Normal Head/Face Inspection Eyes: Positive: Normal Neck: Positive: Supple Respiratory/Lung Sounds: Positive: Clear to Auscultation Cardiovascular: Positive: Normal Abdomen Description: Positive: Other: Musculoskeletal: Positive: Normal Neurological: Positive: Normal Psychiatric: Positive: Normal AVPU Assessment: Alert - [place] Coma Scale Best Eye Response: 4 - Spontaneous Best Motor Response: 6 - Obeys Commands Best Verbal Response: 5 - Oriented Coma Scale Total: 15 Diagnostics - Vital Signs Vital Signs Temp Pulse Resp BP Pulse Ox 07/15/19 14:47 16 07/15/19 12:09 16 07/15/19 11:15 98.2 F 69 16 137/79 96 07/15/19 11:02 16 07/15/19 07:41 98.6 F 68 16 121/69 97 07/15/19 07:40 98.6 F 68 16 121/69 97 07/15/19 06:02 18 07/15/19 03:15 16 07/15/19 00:40 0 F 0 0 0/0 0 07/15/19 00:18 97.1 F 60 16 113/72 99 07/14/19 23:50 16 07/14/19 23:26 62 122/70 96 07/14/19 23:06 75 156/91 96 07/14/19 23:00 61 97 07/14/19 22:00 75 17 164/95 97 07/14/19 21:57 60 164/95 97 07/14/19 21:00 56 96 07/14/19 20:00 59 96 07/14/19 19:25 61 97 07/14/19 19:24 60 134/75 97 07/14/19 17:08 98.6 F 67 18 165/91 97 - Laboratory Lab Results: Lab Results 07/14/19 07/14/19 07/14/19 Range/Units 17:40 17:40 17:41 WBC 4.8 (3.5-10.8) 10^3/uL RBC 4.07 (3.70-4.87) 10^6 /uL Hgb 12.9 (12.0-16.0) g/dL Hct 37 (35-47) % MCV 91 (80-97) fL MCH 32 H (27-31) pg MCHC 35 (31-36) g/dL RDW 15 (10-15) % Plt Count 137 L (150-450) 10^3/uL MPV 9.8 (7.4-10.4) fL Neut % (Auto) 68.4 % Lymph % (Auto) 22.3 % [place] % (Auto) 7.5 % Eos % (Auto) 0.9 % Baso % (Auto) 0.9 % Absolute Neuts (auto) 3.3 (1.5-7.7) 10^3/ul Absolute Lymphs (auto) 1.1 (1.0-4.8) 10^3/ul Absolute Monos (auto) 0.4 (0-0.8) 10^3/ul Absolute Eos (auto) 0.0 (0-0.6) 10^3/ul Absolute Basos (auto) 0.0 (0-0.2) 10^3/ul Absolute Nucleated RBC 0.0 10^3/ul Nucleated RBC % 0.0 INR (Anticoag Therapy) (0.82-1.09) Sodium 139 (135-145) mmol/L Potassium 4.2 (3.5-5.0) mmol/L Chloride 105 (101-111) mmol/L Carbon Dioxide 27 (22-32) mmol/L Anion Gap 7 (2-11) mmol/L BUN 22 (6-24) mg/dL Creatinine 0.95 (0.51-0.95) mg/dL Est GFR ( Amer) 71.4 (>60) Est GFR (Non-Af Amer) 59.0 (>60) BUN/Creatinine Ratio 23.2 H (8-20) Glucose 142 H (70-100) mg/dL Lactic Acid 1.1 (0.5-2.0) mmol/L Calcium 9.4 (8.6-10.3) mg/dL Total Bilirubin 3.60 H (0.2-1.0) mg/dL AST 185 H (13-39) U/L ALT 202 H (7-52) U/L Alkaline Phosphatase 138 H (34-104) U/L C-Reactive Protein 10.12 H (<8.01) mg/L Total Protein 6.8 (6.4-8.9) g/dL Albumin 4.3 (3.2-5.2) g/dL Globulin 2.5 (2-4) g/dL Albumin/Globulin Ratio 1.7 (1-3) Triglycerides mg/dL Cholesterol mg/dL LDL Cholesterol mg/dL HDL Cholesterol mg/dL Lipase 19 (11.0-82.0) U/L Urine Color Urine Appearance Urine pH (5-9) Ur Specific [place] (1.010-1.030) Urine Protein (Negative) Urine Ketones (Negative) Urine Blood (Negative) Urine Nitrate (Negative) Urine Bilirubin (Negative) Urine Urobilinogen (Negative) Ur Leukocyte Esterase (Negative) Urine Glucose (Negative) 07/14/19 07/15/19 07/15/19 Range/Units 20:41 05:59 05:59 WBC 5.5 (3.5-10.8) 10^3/uL RBC 3.87 (3.70-4.87) 10^6 /uL Hgb 12.3 (12.0-16.0) g/dL Hct 35 (35-47) % MCV 91 (80-97) fL MCH 32 H (27-31) pg MCHC 35 (31-36) g/dL RDW 15 (10-15) % Plt Count 128 L (150-450) 10^3/uL MPV 10.4 (7.4-10.4) fL Neut % (Auto) 67.7 % Lymph % (Auto) 22.6 % [place] % (Auto) 7.8 % Eos % (Auto) 1.1 % Baso % (Auto) 0.8 % Absolute Neuts (auto) 3.7 (1.5-7.7) 10^3/ul Absolute Lymphs (auto) 1.3 (1.0-4.8) 10^3/ul Absolute Monos (auto) 0.4 (0-0.8) 10^3/ul Absolute Eos (auto) 0.1 (0-0.6) 10^3/ul Absolute Basos (auto) 0.0 (0-0.2) 10^3/ul Absolute Nucleated RBC 0.0 10^3/ul Nucleated RBC % 0.1 INR (Anticoag Therapy) 1.04 (0.82-1.09) Sodium (135-145) mmol/L Potassium (3.5-5.0) mmol/L Chloride (101-111) mmol/L Carbon Dioxide (22-32) mmol/L Anion Gap (2-11) mmol/L BUN (6-24) mg/dL Creatinine (0.51-0.95) mg/dL Est GFR ( Amer) (>60) Est GFR (Non-Af Amer) (>60) BUN/Creatinine Ratio (8-20) Glucose (70-100) mg/dL Lactic Acid (0.5-2.0) mmol/L Calcium (8.6-10.3) mg/dL Total Bilirubin (0.2-1.0) mg/dL AST (13-39) U/L ALT (7-52) U/L Alkaline Phosphatase (34-104) U/L C-Reactive Protein (<8.01) mg/L Total Protein (6.4-8.9) g/dL Albumin (3.2-5.2) g/dL Globulin (2-4) g/dL Albumin/Globulin Ratio (1-3) Triglycerides mg/dL Cholesterol mg/dL LDL Cholesterol mg/dL HDL Cholesterol mg/dL Lipase (11.0-82.0) U/L Urine Color Yellow Urine Appearance Clear Urine pH 6.0 (5-9) Ur Specific Price 1.003 L (1.010-1.030) Urine Protein Negative (Negative) Urine Ketones Negative (Negative) Urine Blood Negative (Negative) Urine Nitrate Negative (Negative) Urine Bilirubin Negative (Negative) Urine Urobilinogen Negative (Negative) Ur Leukocyte Esterase Negative (Negative) Urine Glucose Negative (Negative) 07/15/19 Range/Units 05:59 WBC (3.5-10.8) 10^3/uL RBC (3.70-4.87) 10^6 /uL Hgb (12.0-16.0) g/dL Hct (35-47) % MCV (80-97) fL MCH (27-31) pg MCHC (31-36) g/dL RDW (10-15) % Plt Count (150-450) 10^3/uL MPV (7.4-10.4) fL Neut % (Auto) % Lymph % (Auto) % [place] % (Auto) % Eos % (Auto) % Baso % (Auto) % Absolute Neuts (auto) (1.5-7.7) 10^3/ul Absolute Lymphs (auto) (1.0-4.8) 10^3/ul Absolute Monos (auto) (0-0.8) 10^3/ul Absolute Eos (auto) (0-0.6) 10^3/ul Absolute Basos (auto) (0-0.2) 10^3/ul Absolute Nucleated RBC 10^3/ul Nucleated RBC % INR (Anticoag Therapy) (0.82-1.09) Sodium 141 (135-145) mmol/L Potassium 4.0 (3.5-5.0) mmol/L Chloride 109 (101-111) mmol/L Carbon Dioxide 27 (22-32) mmol/L Anion Gap 5 (2-11) mmol/L BUN 19 (6-24) mg/dL Creatinine 1.12 H (0.51-0.95) mg/dL Est GFR ( Amer) 59.1 (>60) Est GFR (Non-Af Amer) 48.8 (>60) BUN/Creatinine Ratio 17.0 (8-20) Glucose 113 H (70-100) mg/dL Lactic Acid (0.5-2.0) mmol/L Calcium 9.2 (8.6-10.3) mg/dL Total Bilirubin 3.20 H (0.2-1.0) mg/dL AST 121 H (13-39) U/L ALT 173 H (7-52) U/L Alkaline Phosphatase 142 H (34-104) U/L C-Reactive Protein (<8.01) mg/L Total Protein 6.6 (6.4-8.9) g/dL Albumin 4.0 (3.2-5.2) g/dL Globulin 2.6 (2-4) g/dL Albumin/Globulin Ratio 1.5 (1-3) Triglycerides 85 mg/dL Cholesterol 170 mg/dL LDL Cholesterol 106 mg/dL HDL Cholesterol 46.6 mg/dL Lipase (11.0-82.0) U/L Urine Color Urine Appearance Urine pH (5-9) Ur Specific Price (1.010-1.030) Urine Protein (Negative) Urine Ketones (Negative) Urine Blood (Negative) Urine Nitrate (Negative) Urine Bilirubin (Negative) Urine Urobilinogen (Negative) Ur Leukocyte Esterase (Negative) Urine Glucose (Negative) Result Diagrams: 07/15/19 05:59 07/16/19 05:34 Lab Statement: Any lab studies that have been ordered have been reviewed, and results considered in the medical decision making process. Abdominal Pain Fem Course/Dx - Course Course Of Treatment: Christopehr who recommended admission and surgical consult in the morning. Christopher Patient complains of sudden onset upper right side abdominal pain, nausea, chills, decreased by mouth intake starting tonight. Patient states she had a similar episode 5 nights ago in the middle the night which resolved by morning. Pain is worse with food. Denies fever, cough, sore throat, CP, SOB, V/V range in urine, change in BM, vaginal symptoms. Medical history is right kidney cancer, prior breast cancer, HTN. Abdominal surgical history is 2, partial hysterectomy, right kidney removal, left breast removal. Vital signs within normal limits. Elevated LFTs versus labs from 05/29/19. Labs are otherwise patient baseline or unremarkable. Gallbladder ultrasound positive for echogenic calculi in the gallbladder lumen consistent with cholelithiasis. No abnormal gallbladder wall thickening. Positive sonographic [place] sign raising suspicion for acute cholecystitis. Mild biliary dilatation with the common bile duct measuring 7 mm diameter and no visible choledocholithiasis. Common bile duct dilated versus ultrasound of abdomen conducted on 05/29/19. Discussed patient with surgery Dr Espinoza who recommended admission with surgery consult in the morning. Admitted to hospitalist. - Diagnoses Provider Diagnoses: Cholelithiasis, Elevated LFTs, Common bile duct dilatation Discharge ED - Sign-Out/Discharge Documenting (check all that apply): Patient Departure - Discharge Plan Condition: Stable Disposition: ADMITTED TO [facility] - Billing Disposition and Condition Condition: STABLE Disposition: Admitted to [facility]
[2019-07-17] MEDS: oxyCODONE/Acetamin 5/325 MG* TAB PO SCH ×2 (00:51→05:38)
[2019-07-17] MEDS ORDERED: oxyCODONE/Acetamin 5/325 MG* TAB PO PRN ×2 (01:57→15:18)
[2019-07-17] MEDS ORDERED: HYDROmorphone INJ* 0.5 MG/0.5 ML SYRINGE IV PRN (01:57)
[2019-07-17] MEDS ORDERED: Ondansetron INJ* 2 MG/ML VIAL IV PRN (01:59)
[2019-07-17] MEDS: Al Hydrox/Mg Hydrox/Simet LIQ* 30 ML UDC PO PRN (02:12)
[2019-07-17] MEDS: Heparin VIAL(*) 5000 UNITS/ML VIAL (FIVE THOUSAND) SUBCUT SCH ×2 (05:38→14:05)
[2019-07-17] MEDS: Levothyroxine TAB* 25 MCG TAB PO SCH (05:39)
[2019-07-17 05:47] LABS: ABS Lymphocytes 0.9 10^3/ul (1.0-4.8); ABS Monocytes 0.8 10^3/ul (0-0.8); ABS Neutrophils 9.1 10^3/ul (1.5-7.7); Hematocrit 26 % (35-47); Hemoglobin 9.1 g/dL (12.0-16.0); Lymphocyte % 8.5 %; Mean Corpuscular HGB Conc 35 g/dL (31-36); Mean Corpuscular Hemoglobin 32 pg (27-31); Mean Corpuscular Volume 92 fL (80-97); Mean Platelet Volume 10.3 fL (7.4-10.4); Platelet Count 129 10^3/uL (150-450); Red Blood Count 2.84 10^6 /uL (3.70-4.87); Red Cell Distribution Width 15 % (10-15); White Blood Count 10.8 10^3/uL (3.5-10.8)
[2019-07-17 06:10] LABS: Albumin 3.5 g/dL (3.2-5.2); Albumin/Globulin Ratio 1.6 (1-3); BUN/Creatinine Ratio 18.6 (8-20); Calcium 8.2 mg/dL (8.6-10.3); EGFR African American 58.5 (>60); EGFR Non-African American 48.3 (>60); Globulin 2.2 g/dL (2-4); Potassium 4.6 mmol/L (3.5-5.0); Total Protein 5.7 g/dL (6.4-8.9)
--- NOTE | 2019-07-17 06:52 | PN ---
Subjective Date of Service: 07/17/19 Interval History: POD#1 s/p Lap Cholecystectomy. VS stable. complains of severe RUQ pain. No nausea or vomiting. No BM but able to pass flatus. Objective Active Medications: Acetaminophen (Tylenol Tab*) 650 mg PO Q4H PRN PRN Reason: MILD PAIN or TEMP > 100.4 Last Admin: 07/16/19 20:20 Dose: 650 mg Al Hydrox/Mg Hydrox/Simethicone (Maalox Plus*) 30 ml PO Q6H PRN PRN Reason: INDIGESTION Last Admin: 07/17/19 02:12 Dose: 30 ml Heparin Sodium (Porcine) (Heparin Vial(*)) 5,000 units SUBCUT Q8HR [facility] Last Admin: 07/17/19 05:38 Dose: 5,000 units Hydromorphone HCl (Dilaudid Inj*) 0.5 mg IV Q2H PRN PRN Reason: PAIN - SEVERE Hydromorphone HCl (Dilaudid Inj1s*) 1 mg IV Q2H PRN PRN Reason: MORE SEVERE PAIN Sodium Chloride (Ns 0.9% 1000 Ml) 1,000 mls @ 75 mls/hr IV PER RATE [facility] Last Admin: 07/16/19 19:26 Dose: 75 mls/hr Influenza Virus Vaccine (Fluarix Quad [id number] Syr) 0.5 ml IM .ONCE ONE Stop: 07/17/19 09:01 Levothyroxine Sodium (Synthroid Tab*) 25 mcg PO 0600 [facility] Last Admin: 07/17/19 05:39 Dose: 25 mcg Lidocaine (Lidoderm 5% Patch*) 1 patch TRANSDERM DAILY [facility] Last Admin: 07/16/19 10:10 Dose: Not Given Lisinopril (Prinivil Tab*) 10 mg PO DAILY [facility] Last Admin: 07/16/19 10:09 Dose: 10 mg Ondansetron HCl (Zofran Inj*) 4 mg IV Q6H PRN PRN Reason: NAUSEA Oxycodone/Acetaminophen (Percocet 5/325 Tab*) 1 tab PO Q6HR [facility] Last Admin: 07/17/19 05:38 Dose: 1 tab Oxycodone/Acetaminophen (Percocet 5/325 Tab*) 1 tab PO Q4H PRN PRN Reason: PAIN - MODERATE Pantoprazole Sodium (Protonix Tab*) 40 mg PO DAILY [facility] Last Admin: 07/16/19 10:09 Dose: 40 mg Pharmacy Consult (Zosyn Per Pharmacy*) 1 note FOLLOW UP .ZOSYN PER PHARMACY [facility] Pharmacy Profile Note (Lidocaine Patch Remove*) 1 note PATCH OFF 2100 [facility] Last Admin: 07/16/19 21:32 Dose: Not Given Vital Signs - 8 hr 07/17/19 07/17/19 07/17/19 00:39 00:51 00:55 Temperature 98.9 F Pulse Rate 85 Respiratory 17 18 16 Rate Blood Pressure 105/68 (mmHg) O2 Sat by Pulse 97 Oximetry 07/17/19 07/17/19 07/17/19 03:07 03:21 03:53 Temperature 98.1 F 98.1 F Pulse Rate 69 74 Respiratory 16 16 17 Rate Blood Pressure 102/54 112/55 (mmHg) O2 Sat by Pulse 95 96 Oximetry 07/17/19 05:38 Temperature Pulse Rate Respiratory 12 Rate Blood Pressure (mmHg) O2 Sat by Pulse Oximetry Oxygen Devices in Use Now: CPAP Exam: Patient is lying on a bed with no acute discomfort. HEENT: Normocephalic and atraumatic Lungs: clear vesicular sound heard Heart: S1/S2 heard with no murmur or rubs Abdomen: Four incision on abdomen which looks healthy. tenderness on RUQ with no rebound tenderness, guarding or rigidity. Extremity: NO edema, cyanosis or clubbing Neuro: Alert, conscious and oriented. Result Diagrams: 07/17/19 05:22 07/17/19 05:22 Additional Lab and Data: Lab Results 07/14/19 07/14/19 07/14/19 Range/Units 17:40 17:40 17:41 WBC 4.8 (3.5-10.8) 10^3/uL RBC 4.07 (3.70-4.87) 10^6 /uL Hgb 12.9 (12.0-16.0) g/dL Hct 37 (35-47) % MCV 91 (80-97) fL MCH 32 H (27-31) pg MCHC 35 (31-36) g/dL RDW 15 (10-15) % Plt Count 137 L (150-450) 10^3/uL MPV 9.8 (7.4-10.4) fL Neut % (Auto) 68.4 % Lymph % (Auto) 22.3 % [place] % (Auto) 7.5 % Eos % (Auto) 0.9 % Baso % (Auto) 0.9 % Absolute Neuts (auto) 3.3 (1.5-7.7) 10^3/ul Absolute Lymphs (auto) 1.1 (1.0-4.8) 10^3/ul Absolute Monos (auto) 0.4 (0-0.8) 10^3/ul Absolute Eos (auto) 0.0 (0-0.6) 10^3/ul Absolute Basos (auto) 0.0 (0-0.2) 10^3/ul Absolute Nucleated RBC 0.0 10^3/ul Nucleated RBC % 0.0 INR (Anticoag Therapy) (0.82-1.09) Sodium 139 (135-145) mmol/L Potassium 4.2 (3.5-5.0) mmol/L Chloride 105 (101-111) mmol/L Carbon Dioxide 27 (22-32) mmol/L Anion Gap 7 (2-11) mmol/L BUN 22 (6-24) mg/dL Creatinine 0.95 (0.51-0.95) mg/dL Est GFR ( Amer) 71.4 (>60) Est GFR (Non-Af Amer) 59.0 (>60) BUN/Creatinine Ratio 23.2 H (8-20) Glucose 142 H (70-100) mg/dL Lactic Acid 1.1 (0.5-2.0) mmol/L Calcium 9.4 (8.6-10.3) mg/dL Total Bilirubin 3.60 H (0.2-1.0) mg/dL AST 185 H (13-39) U/L ALT 202 H (7-52) U/L Alkaline Phosphatase 138 H (34-104) U/L C-Reactive Protein 10.12 H (<8.01) mg/L Total Protein 6.8 (6.4-8.9) g/dL Albumin 4.3 (3.2-5.2) g/dL Globulin 2.5 (2-4) g/dL Albumin/Globulin Ratio 1.7 (1-3) Triglycerides mg/dL Cholesterol mg/dL LDL Cholesterol mg/dL HDL Cholesterol mg/dL Lipase 19 (11.0-82.0) U/L Urine Color Urine Appearance Urine pH (5-9) Ur Specific [place] (1.010-1.030) Urine Protein (Negative) Urine Ketones (Negative) Urine Blood (Negative) Urine Nitrate (Negative) Urine Bilirubin (Negative) Urine Urobilinogen (Negative) Ur Leukocyte Esterase (Negative) Urine Glucose (Negative) 07/14/19 07/15/19 07/15/19 Range/Units 20:41 05:59 05:59 WBC 5.5 (3.5-10.8) 10^3/uL RBC 3.87 (3.70-4.87) 10^6 /uL Hgb 12.3 (12.0-16.0) g/dL Hct 35 (35-47) % MCV 91 (80-97) fL MCH 32 H (27-31) pg MCHC 35 (31-36) g/dL RDW 15 (10-15) % Plt Count 128 L (150-450) 10^3/uL MPV 10.4 (7.4-10.4) fL Neut % (Auto) 67.7 % Lymph % (Auto) 22.6 % [place] % (Auto) 7.8 % Eos % (Auto) 1.1 % Baso % (Auto) 0.8 % Absolute Neuts (auto) 3.7 (1.5-7.7) 10^3/ul Absolute Lymphs (auto) 1.3 (1.0-4.8) 10^3/ul Absolute Monos (auto) 0.4 (0-0.8) 10^3/ul Absolute Eos (auto) 0.1 (0-0.6) 10^3/ul Absolute Basos (auto) 0.0 (0-0.2) 10^3/ul Absolute Nucleated RBC 0.0 10^3/ul Nucleated RBC % 0.1 INR (Anticoag Therapy) 1.04 (0.82-1.09) Sodium (135-145) mmol/L Potassium (3.5-5.0) mmol/L Chloride (101-111) mmol/L Carbon Dioxide (22-32) mmol/L Anion Gap (2-11) mmol/L BUN (6-24) mg/dL Creatinine (0.51-0.95) mg/dL Est GFR ( Amer) (>60) Est GFR (Non-Af Amer) (>60) BUN/Creatinine Ratio (8-20) Glucose (70-100) mg/dL Lactic Acid (0.5-2.0) mmol/L Calcium (8.6-10.3) mg/dL Total Bilirubin (0.2-1.0) mg/dL AST (13-39) U/L ALT (7-52) U/L Alkaline Phosphatase (34-104) U/L C-Reactive Protein (<8.01) mg/L Total Protein (6.4-8.9) g/dL Albumin (3.2-5.2) g/dL Globulin (2-4) g/dL Albumin/Globulin Ratio (1-3) Triglycerides mg/dL Cholesterol mg/dL LDL Cholesterol mg/dL HDL Cholesterol mg/dL Lipase (11.0-82.0) U/L Urine Color Yellow Urine Appearance Clear Urine pH 6.0 (5-9) Ur Specific [place] 1.003 L (1.010-1.030) Urine Protein Negative (Negative) Urine Ketones Negative (Negative) Urine Blood Negative (Negative) Urine Nitrate Negative (Negative) Urine Bilirubin Negative (Negative) Urine Urobilinogen Negative (Negative) Ur Leukocyte Esterase Negative (Negative) Urine Glucose Negative (Negative) 07/15/19 Range/Units 05:59 WBC (3.5-10.8) 10^3/uL RBC (3.70-4.87) 10^6 /uL Hgb (12.0-16.0) g/dL Hct (35-47) % MCV (80-97) fL MCH (27-31) pg MCHC (31-36) g/dL RDW (10-15) % Plt Count (150-450) 10^3/uL MPV (7.4-10.4) fL Neut % (Auto) % Lymph % (Auto) % [place] % (Auto) % Eos % (Auto) % Baso % (Auto) % Absolute Neuts (auto) (1.5-7.7) 10^3/ul Absolute Lymphs (auto) (1.0-4.8) 10^3/ul Absolute Monos (auto) (0-0.8) 10^3/ul Absolute Eos (auto) (0-0.6) 10^3/ul Absolute Basos (auto) (0-0.2) 10^3/ul Absolute Nucleated RBC 10^3/ul Nucleated RBC % INR (Anticoag Therapy) (0.82-1.09) Sodium 141 (135-145) mmol/L Potassium 4.0 (3.5-5.0) mmol/L Chloride 109 (101-111) mmol/L Carbon Dioxide 27 (22-32) mmol/L Anion Gap 5 (2-11) mmol/L BUN 19 (6-24) mg/dL Creatinine 1.12 H (0.51-0.95) mg/dL Est GFR ( Amer) 59.1 (>60) Est GFR (Non-Af Amer) 48.8 (>60) BUN/Creatinine Ratio 17.0 (8-20) Glucose 113 H (70-100) mg/dL Lactic Acid (0.5-2.0) mmol/L Calcium 9.2 (8.6-10.3) mg/dL Total Bilirubin 3.20 H (0.2-1.0) mg/dL AST 121 H (13-39) U/L ALT 173 H (7-52) U/L Alkaline Phosphatase 142 H (34-104) U/L C-Reactive Protein (<8.01) mg/L Total Protein 6.6 (6.4-8.9) g/dL Albumin 4.0 (3.2-5.2) g/dL Globulin 2.6 (2-4) g/dL Albumin/Globulin Ratio 1.5 (1-3) Triglycerides 85 mg/dL Cholesterol 170 mg/dL LDL Cholesterol 106 mg/dL HDL Cholesterol 46.6 mg/dL Lipase (11.0-82.0) U/L Urine Color Urine Appearance Urine pH (5-9) Ur Specific [place] (1.010-1.030) Urine Protein (Negative) Urine Ketones (Negative) Urine Blood (Negative) Urine Nitrate (Negative) Urine Bilirubin (Negative) Urine Urobilinogen (Negative) Ur Leukocyte Esterase (Negative) Urine Glucose (Negative) Assess/Plan/Problems-Billing Assessment: 64 y/o F with h/o HTN, Hypothyroidism, Anemia, Depression, Esophageal spasm, Breast ca s/p mastectomy, RCC s/p left nephrectomy with right renal nephrolithiasis presented with upper abdominal pain. Found to have cholelithiasis on MRCP and also has cholestatic LFT pattern(normalizing). S/P cholecystectomy POD#1, from a medical standpoint she is cleared to be dc afterwards - Patient Problems (1) Cholelithiasis Current Visit: Yes Status: Acute Comment: S/P cholecystectomy, POD#1; complains of abdominal pain; could be bleeding or bile leak. -Found to have cholelithiasis on US and MRCP. Abnormal LFTs(decreasing). Surgery following. -no any intervention from medical standpoint except for pain control. -will sign off to surgery. (2) HTN (hypertension) Current Visit: Yes Status: Acute Code(s): I10 - ESSENTIAL (PRIMARY) HYPERTENSION SNOMED Code(s): 22877077 Comment: Was high on presentation. Now well controlled. Continue lisinopril 10 mg (3) Hypothyroid Current Visit: Yes Status: Acute Code(s): E03.9 - HYPOTHYROIDISM, UNSPECIFIED SNOMED Code(s): 27942770 Comment: On levothyroxine 25 mcg. (4) DVT prophylaxis Current Visit: Yes Status: Acute Code(s): Z29.9 - ENCOUNTER FOR PROPHYLACTIC MEASURES, UNSPECIFIED SNOMED Code(s): 671962316 Comment: ON SCD (5) Full code status Current Visit: Yes Status: Acute Code(s): Z78.9 - OTHER SPECIFIED HEALTH STATUS SNOMED Code(s): 155950075 Status and Disposition: Will defer to surgery, she may be d/c at their discretion, Medicine will sign off. Attending: Deepali Breen Attestation Documenting Resident: Yakelin Turner Supervising Physician: Deepali Breen Attestation: This service has been performed in part by a resident under the direction of a teaching physician.I, Deepali Breen, performed the service, or was physically present during the critical, or vitale portions of the service, furnished by the resident. I participated in the management of the patient.
[2019-07-17] MEDS: Lidocaine PATCH 5%* 1 PATCH TRANSDERM SCH (08:25)
[2019-07-17] MEDS: NS 0.9% 1000 ML** 1,000 ML IV SCH ×2 (08:35→21:54)
[2019-07-17] MEDS: Lisinopril TAB* 10 MG PO SCH (08:36)
[2019-07-17] MEDS: Pantoprazole TAB * 40 MG TAB PO SCH (08:36)
[2019-07-17] MEDS: HYDROmorphone INJ1* 1 MG/ML SYRINGE IV PRN ×2 (08:36→14:10)
--- NOTE | 2019-07-17 08:37 | PN ---
Progress Note - Progress Note Date of Service: 07/17/19 Note: S: POD #1. c/o severe RUQ pain, which seems to be worse now vs when she first got up this a.m. Worse w/ deep breath; in fact, pain with any inspiration or movement. Lyla po (no N/V0. Passing small amts of flatus. O: Vital Signs - 8 hr 07/17/19 07/17/19 07/17/19 00:39 00:51 00:55 Temperature 98.9 F Pulse Rate 85 Respiratory 17 18 16 Rate Blood Pressure 105/68 (mmHg) O2 Sat by Pulse 97 Oximetry 07/17/19 07/17/19 07/17/19 03:07 03:21 03:53 Temperature 98.1 F 98.1 F Pulse Rate 69 74 Respiratory 16 16 17 Rate Blood Pressure 102/54 112/55 (mmHg) O2 Sat by Pulse 95 96 Oximetry 07/17/19 07/17/19 07/17/19 05:38 07:15 07:30 Temperature 98.7 F Pulse Rate 87 Respiratory 12 16 16 Rate Blood Pressure 131/58 (mmHg) O2 Sat by Pulse 97 Oximetry Intake and Output Last 24 Hours 07/15/19 07/16/19 07/17/19 07/18/19 06:59 06:59 06:59 06:59 Intake Total 463 1580 1960 Output Total 300 Balance 463 1580 1660 Weight 219 lb 9.6 oz 219 lb 9.6 oz Intake: IV Fluids 461 918 7322 LR 1000 IVPB 363 110 ABX - ZOSYN 100 NS (0.9%) 263 Oral 0 480 960 Output: Urine 300 Other: Estimated Void Medium # Voids 1 Gen: mild distress Heart: reg Lungs: clear, though decreased BS 2/2 pain Abd: lap sites ok; +BS; soft; moderately severe tenderness RUQ w/o mass; mild to no tenderness through remainder of abd Labs: Laboratory Tests 07/15/19 07/17/19 07/17/19 05:59 05:22 05:22 Hgb 12.3 9.1 L Hct 35 26 L Plt Count 129 L Creatinine 1.13 H Total Bilirubin 1.00 AST 41 H ALT 86 H A: s/p lap cholecystectomy w/ new/increasing RUQ pain and drop in H&H. She is in positive fluid balance, though I suspect some postoperative bleed from the liver bed; VS have been stable. P: will change Percocet to 2 q 4h prn; Dilaudid prn (she has not yet req'd); cont to monitor; she understands that this is usually a self-limited process, but that she may require an additional day in the hospital for monitoring and pain mgmnt.
[2019-07-17] MEDS ORDERED: Influenza VAC *QUAD* 2019-20* 0.5 ML SYRINGE IM ONE (09:00)
[2019-07-17] MEDS: oxyCODONE/Acetamin 5/325 MG* TAB PO PRN ×3 (10:32→19:16)
[2019-07-17 17:24] LABS: Hematocrit 25 % (35-47); Hemoglobin 8.8 g/dL (12.0-16.0)
[2019-07-17] MEDS ORDERED: Bisacodyl SUPP* 10 MG SUPP PR ONE (18:05)
[2019-07-17] MEDS: Lidocaine Patch REMOVE* 1 NOTE MISC PATCH OFF SCH (19:55)
[2019-07-18] MEDS: HYDROmorphone INJ1* 1 MG/ML SYRINGE IV PRN ×6 (01:43→17:39)
[2019-07-18] MEDS: oxyCODONE/Acetamin 5/325 MG* TAB PO PRN ×5 (02:59→22:00)
[2019-07-18] MEDS: Levothyroxine TAB* 25 MCG TAB PO SCH (06:26)
[2019-07-18 06:40] LABS: ABS Basophils 0.1 10^3/ul (0-0.2); Eosinophil % 0.1 %; Hematocrit 25 % (35-47); Hemoglobin 8.6 g/dL (12.0-16.0); Lymphocyte % 15.1 %; Mean Corpuscular HGB Conc 34 g/dL (31-36); Mean Corpuscular Hemoglobin 32 pg (27-31); Mean Corpuscular Volume 93 fL (80-97); Mean Platelet Volume 10.1 fL (7.4-10.4); Nucleated Red Blood Cells % 0.1; Platelet Count 146 10^3/uL (150-450); Red Blood Count 2.73 10^6 /uL (3.70-4.87); Red Cell Distribution Width 16 % (10-15)
[2019-07-18] MEDS: Lisinopril TAB* 10 MG PO SCH (07:42)
[2019-07-18] MEDS: Pantoprazole TAB * 40 MG TAB PO SCH (07:42)
[2019-07-18] MEDS: Lidocaine PATCH 5%* 1 PATCH TRANSDERM SCH (08:09)
[2019-07-18] MEDS: Polyethylene Glycol 3350* 17 GM PACKET PO SCH ×2 (10:02→22:02)
[2019-07-18] MEDS: NS 0.9% 1000 ML** 1,000 ML IV SCH (11:11)
--- NOTE | 2019-07-18 15:12 | PN ---
Progress Note - Progress Note Date of Service: 07/18/19 SOAP: Subjective: [] abdominal wall pain Objective: []ecchymosis right abdomen Temp Pulse Resp BP Pulse Ox 98.0 F 81 18 108/55 98 07/18/19 11:57 07/18/19 11:57 07/18/19 14:08 07/18/19 11:57 07/18/19 11:57 Laboratory Last Values WBC 13.0 10^3/uL (3.5-10.8) H 07/18/19 06:01 RBC 2.73 10^6 /uL (3.70-4.87) L 07/18/19 06:01 Hgb 8.6 g/dL (12.0-16.0) L 07/18/19 06:01 Hct 25 % (35-47) L 07/18/19 06:01 MCV 93 fL (80-97) 07/18/19 06:01 MCH 32 pg (27-31) H 07/18/19 06:01 MCHC 34 g/dL (31-36) 07/18/19 06:01 RDW 16 % (10-15) H 07/18/19 06:01 Plt Count 146 10^3/uL (150-450) L 07/18/19 06:01 MPV 10.1 fL (7.4-10.4) 07/18/19 06:01 Neut % (Auto) 76.8 % 07/18/19 06:01 Lymph % (Auto) 15.1 % 07/18/19 06:01 Gaines % (Auto) 7.6 % 07/18/19 06:01 Eos % (Auto) 0.1 % 07/18/19 06:01 Baso % (Auto) 0.4 % 07/18/19 06:01 Absolute Neuts (auto) 10.0 10^3/ul (1.5-7.7) H 07/18/19 06:01 Absolute Lymphs (auto) 2.0 10^3/ul (1.0-4.8) 07/18/19 06:01 Absolute Monos (auto) 1.0 10^3/ul (0-0.8) H 07/18/19 06:01 Absolute Eos (auto) 0.0 10^3/ul (0-0.6) 07/18/19 06:01 Absolute Basos (auto) 0.1 10^3/ul (0-0.2) 07/18/19 06:01 Absolute Nucleated RBC 0.0 10^3/ul 07/18/19 06:01 Nucleated RBC % 0.1 07/18/19 06:01 INR (Anticoag Therapy) 1.04 (0.82-1.09) 07/15/19 05:59 Sodium 138 mmol/L (135-145) 07/17/19 05:22 Potassium 4.6 mmol/L (3.5-5.0) 07/17/19 05:22 Chloride 108 mmol/L (101-111) 07/17/19 05:22 Carbon Dioxide 22 mmol/L (22-32) 07/17/19 05:22 Anion Gap 8 mmol/L (2-11) 07/17/19 05:22 BUN 21 mg/dL (6-24) 07/17/19 05:22 Creatinine 1.13 mg/dL (0.51-0.95) H 07/17/19 05:22 Est GFR ( Amer) 58.5 (>60) 07/17/19 05:22 Est GFR (Non-Af Amer) 48.3 (>60) 07/17/19 05:22 BUN/Creatinine Ratio 18.6 (8-20) 07/17/19 05:22 Glucose 160 mg/dL (70-100) H 07/17/19 05:22 POC Glucose (mg/dL) 123 mg/dL (70-100) H 07/16/19 17:01 Lactic Acid 1.1 mmol/L (0.5-2.0) 07/14/19 17:41 Calcium 8.2 mg/dL (8.6-10.3) L 07/17/19 05:22 Total Bilirubin 1.00 mg/dL (0.2-1.0) 07/17/19 05:22 AST 41 U/L (13-39) H 07/17/19 05:22 ALT 86 U/L (7-52) H 07/17/19 05:22 Alkaline Phosphatase 97 U/L (34-104) 07/17/19 05:22 C-Reactive Protein 10.12 mg/L (<8.01) H 07/14/19 17:40 Total Protein 5.7 g/dL (6.4-8.9) L 07/17/19 05:22 Albumin 3.5 g/dL (3.2-5.2) 07/17/19 05:22 Globulin 2.2 g/dL (2-4) 07/17/19 05:22 Albumin/Globulin Ratio 1.6 (1-3) 07/17/19 05:22 Triglycerides 85 mg/dL 07/15/19 05:59 Cholesterol 170 mg/dL 07/15/19 05:59 LDL Cholesterol 106 mg/dL 07/15/19 05:59 HDL Cholesterol 46.6 mg/dL 07/15/19 05:59 Lipase 19 U/L (11.0-82.0) 07/14/19 17:40 Urine Color Yellow 07/14/19 20:41 Urine Appearance Clear 07/14/19 20:41 Urine pH 6.0 (5-9) 07/14/19 20:41 Ur Specific [place] 1.003 (1.010-1.030) L 07/14/19 20:41 Urine Protein Negative (Negative) 07/14/19 20:41 Urine Ketones Negative (Negative) 07/14/19 20:41 Urine Blood Negative (Negative) 07/14/19 20:41 Urine Nitrate Negative (Negative) 07/14/19 20:41 Urine Bilirubin Negative (Negative) 07/14/19 20:41 Urine Urobilinogen Negative (Negative) 07/14/19 20:41 Ur Leukocyte Esterase Negative (Negative) 07/14/19 20:41 Urine Glucose Negative (Negative) 07/14/19 20:41 Intake & Output 07/16/19 07/17/19 07/18/19 07/19/19 06:59 06:59 06:59 06:59 Intake Total 1580 1960 3095 980 Output Total 300 825 525 Balance 1580 1660 2270 455 Weight 219 lb 9.6 oz Intake: IV Fluids 990 1000 1905 980 LR 1000 NS (0.9%) 1905 980 IVPB 110 Oral 595 619 9127 0 Output: Urine 300 825 525 Other: Estimated Void Medium Medium # Voids 1 2 Assessment: []abdominal; wall hematoma, draining through port site Plan: []add clindamycin empirically-draining site with hematoma exposed
[2019-07-18] MEDS: Clindamycin CAP* 150 MG PO SCH ×2 (15:38→22:00)
[2019-07-18] MEDS ORDERED: Cephalexin CAP* 500 MG PO SCH (17:00)
[2019-07-19] MEDS: Lidocaine Patch REMOVE* 1 NOTE MISC PATCH OFF SCH ×2 (00:38→20:47)
[2019-07-19] MEDS: oxyCODONE/Acetamin 5/325 MG* TAB PO PRN ×5 (02:22→23:51)
[2019-07-19] MEDS: HYDROmorphone INJ1* 1 MG/ML SYRINGE IV PRN ×2 (04:14→09:07)
[2019-07-19] MEDS: Clindamycin CAP* 150 MG PO SCH ×3 (05:54→21:56)
[2019-07-19] MEDS: Levothyroxine TAB* 25 MCG TAB PO SCH (05:54)
[2019-07-19] MEDS: Lidocaine PATCH 5%* 1 PATCH TRANSDERM SCH (08:21)
[2019-07-19] MEDS: Lisinopril TAB* 10 MG PO SCH (08:22)
[2019-07-19] MEDS: Pantoprazole TAB * 40 MG TAB PO SCH (08:22)
[2019-07-19] MEDS: Polyethylene Glycol 3350* 17 GM PACKET PO SCH ×2 (08:22→20:47)
--- NOTE | 2019-07-19 11:11 | PN ---
Progress Note - Progress Note Date of Service: 07/19/19 SOAP: Subjective: Pt seen and examined. Doing well. SOme abdo pain. good appetite Objective: Temp Pulse Resp BP Pulse Ox 96.9 F 83 18 136/58 99 07/19/19 07:22 07/19/19 07:22 07/19/19 10:54 07/19/19 07:22 07/19/19 07:22 a and o x3, nad lungs clear abdo: soft/ , obese/ tender at R. po ecchymosis ext wnl labs noted Assessment: POD 3 lap abisai, abdo wall bleed- stopped; HD stable Plan: OOB pain control d/c planning
[2019-07-20] MEDS: HYDROmorphone INJ1* 1 MG/ML SYRINGE IV PRN ×2 (01:59→06:20)
[2019-07-20] MEDS: oxyCODONE/Acetamin 5/325 MG* TAB PO PRN ×5 (04:19→23:58)
[2019-07-20] MEDS: Clindamycin CAP* 150 MG PO SCH ×3 (06:08→20:48)
[2019-07-20] MEDS: Levothyroxine TAB* 25 MCG TAB PO SCH (06:08)
[2019-07-20] MEDS: Lidocaine PATCH 5%* 1 PATCH TRANSDERM SCH (07:51)
[2019-07-20] MEDS: Polyethylene Glycol 3350* 17 GM PACKET PO SCH ×2 (09:32→20:51)
[2019-07-20] MEDS: Pantoprazole TAB * 40 MG TAB PO SCH (09:34)
[2019-07-20] MEDS: Lisinopril TAB* 10 MG PO SCH (09:34)
--- NOTE | 2019-07-20 10:21 | PN ---
Progress Note - Progress Note Date of Service: 07/20/19 SOAP: Subjective: Pt seen and examined. Doing well. Continied abdo pain, and difficult night sleep. good appetite. Objective: Temp Pulse Resp BP Pulse Ox 98.9 F 84 18 112/54 93 07/20/19 07:42 07/20/19 07:42 07/20/19 09:34 07/20/19 07:42 07/20/19 07:42 a and o x3, nad lungs clear abdo: soft/ , obese/ tender at R. significant ecchymosis; no rebound ext wnl Assessment: POD 4 lap abisai, abdo wall bleed- stopped; HD stable; pain management issue Plan: OOB pain control d/c planning- tomorrow ; pt refusing today, and I believe this is okay
[2019-07-20] MEDS: Lidocaine Patch REMOVE* 1 NOTE MISC PATCH OFF SCH (20:51)
[2019-07-21] MEDS: HYDROmorphone INJ1* 1 MG/ML SYRINGE IV PRN ×2 (01:25→03:27)
[2019-07-21] MEDS: Clindamycin CAP* 150 MG PO SCH ×3 (05:31→21:28)
[2019-07-21] MEDS: Levothyroxine TAB* 25 MCG TAB PO SCH (05:31)
[2019-07-21] MEDS: oxyCODONE/Acetamin 5/325 MG* TAB PO PRN ×3 (05:31→16:26)
[2019-07-21] MEDS: Lidocaine PATCH 5%* 1 PATCH TRANSDERM SCH ×2 (08:45→12:30)
[2019-07-21] MEDS: Polyethylene Glycol 3350* 17 GM PACKET PO SCH ×2 (08:45→21:29)
[2019-07-21] MEDS: Lisinopril TAB* 10 MG PO SCH (09:43)
[2019-07-21] MEDS: Pantoprazole TAB * 40 MG TAB PO SCH (09:44)
[2019-07-21] MEDS: oxyCODONE SR TAB(*) 10 MG TAB.SR PO SCH ×2 (12:30→21:28)
--- NOTE | 2019-07-21 13:06 | PN ---
Progress Note - Progress Note Date of Service: 07/21/19 SOAP: Subjective:abd pain control still problematic;eating ok;no n/v [] Objective: Vital Signs Temp 98.7 F 07/21/19 11:42 Pulse 76 07/21/19 11:42 Resp 16 07/21/19 12:30 BP 134/67 07/21/19 11:42 Pulse Ox 99 07/21/19 11:42 Intake & Output 07/20/19 07/21/19 07/21/19 18:59 06:59 18:59 Intake Total 810 600 Output Total 400 2300 Balance 410 -1700 Intake: Oral 810 600 Output: Urine 400 2300 Other: Estimated Stool Amount Medium abd:obese,+bs;extensive ecchymosis;tender R mid abd;lap incisions intact,no erythema or drainage [] Assessment:need for better pain control before discharge, agrees [] Plan:discussed pain management guidelines with pharmacist Denise;will try Oxycontin 10mg po q12h,Oxycodone/acetaminophen 5/325mg q4hprn breakthrough pain, Lidocaine patch,Neurontin 300mg po BID;patient agrees with this plan,we will observe overnight to assure that it manages her pain; updated;plan discussed with FRANK Martin on [facility] []
[2019-07-21] MEDS: Gabapentin CAP(*) 300 MG PO SCH (21:28)
[2019-07-21] MEDS: Lidocaine Patch REMOVE* 1 NOTE MISC PATCH OFF SCH (21:29)
[2019-07-22] MEDS: oxyCODONE/Acetamin 5/325 MG* TAB PO PRN (00:10)
[2019-07-22] MEDS: HYDROmorphone INJ* 0.5 MG/0.5 ML SYRINGE IV PRN ×4 (03:54→07:22)
[2019-07-22] MEDS: Levothyroxine TAB* 25 MCG TAB PO SCH (05:15)
[2019-07-22] MEDS: Clindamycin CAP* 150 MG PO SCH ×3 (05:15→21:47)
[2019-07-22] MEDS: Al Hydrox/Mg Hydrox/Simet LIQ* 30 ML UDC PO PRN (06:20)
[2019-07-22] MEDS: Gabapentin CAP(*) 300 MG PO SCH ×2 (09:24→21:47)
[2019-07-22] MEDS: oxyCODONE SR TAB(*) 10 MG TAB.SR PO SCH (09:24)
[2019-07-22] MEDS: Lisinopril TAB* 10 MG PO SCH (09:24)
[2019-07-22] MEDS: Pantoprazole TAB * 40 MG TAB PO SCH (09:24)
[2019-07-22] MEDS: Lidocaine PATCH 5%* 1 PATCH TRANSDERM SCH ×3 (09:25→21:47)
[2019-07-22] MEDS: Polyethylene Glycol 3350* 17 GM PACKET PO SCH ×2 (09:26→21:48)
[2019-07-22] MEDS ORDERED: oxyCODONE SR TAB(*) 10 MG TAB.SR PO ONE (10:30)
[2019-07-22] MEDS ORDERED: oxyCODONE/Acetamin 5/325 MG* TAB PO PRN (10:31)
[2019-07-22] MEDS: oxyCODONE SR TAB(*) 20 MG TAB.SR PO SCH (21:47)
--- NOTE | 2019-07-22 22:50 | PN ---
Progress Note - Progress Note Date of Service: 07/22/19 Note: Surgery Progress (late entry; patient seen this a.m. ~ 10:00) S: Had significant increase in pain again last night and early this a.m., requiring IV Dilaudid. She has less pain at the present. Lyla diet; no N/V. Had BM this a.m. Ambulating, though this seems to aggravate her pain. Pain continues in the same area of the Right abdomen. O: Vital Signs - 8 hr 07/22/19 07/22/19 07/22/19 15:44 19:49 21:47 Temperature 98.5 F 99.1 F Pulse Rate 91 89 Respiratory 16 18 17 Rate Blood Pressure 120/60 134/69 (mmHg) O2 Sat by Pulse 95 99 Oximetry Intake and Output Last 24 Hours 07/20/19 07/21/19 07/22/19 07/23/19 06:59 06:59 06:59 06:59 Intake Total 1350 1410 1340 530 Output Total 1400 2700 2100 850 Balance -50 -1290 -760 -320 Intake: Oral 1350 1410 1340 530 Output: Urine 1400 2700 2100 850 Other: # Bowel Movements 1 1 Estimated Stool Amount Medium Medium Large Gen: WN, WD in NAD, lying in bed Heart: reg Lungs: clear; good insp effort Abd: extensive ecchymosis over Right abd and flank. Small amount of dark blood on dressing; changed dsg. +BS; soft w/ firmness to palp around right lateral lap incision site,where she is most tender; encompasses and area ~ 8 x 10 cm. Remainder of abd soft, less tender. A: s/p lap abisai w/ postop abd wall hematoma, still w/ sig pain P: as she normally takes 30mg of oxycodone per day as a baseline, I will increase her oxycontin to 20 mg q 12h and make Percocet 5/325 available as one or two tabs q 4h. Will also have the Lidocaine patch placed in the evening for better night time pain control.
[2019-07-23] MEDS: HYDROmorphone INJ* 0.5 MG/0.5 ML SYRINGE IV PRN ×5 (00:37→12:41)
[2019-07-23] MEDS: oxyCODONE/Acetamin 5/325 MG* TAB PO PRN ×4 (01:05→13:58)
[2019-07-23] MEDS: Clindamycin CAP* 150 MG PO SCH ×3 (05:38→21:51)
[2019-07-23] MEDS: Levothyroxine TAB* 25 MCG TAB PO SCH (05:38)
[2019-07-23] MEDS: Lidocaine Patch REMOVE* 1 NOTE MISC PATCH OFF SCH (05:43)
[2019-07-23] MEDS: Polyethylene Glycol 3350* 17 GM PACKET PO SCH ×2 (07:48→21:49)
[2019-07-23] MEDS: oxyCODONE SR TAB(*) 20 MG TAB.SR PO SCH ×2 (08:52→21:48)
[2019-07-23] MEDS: Lisinopril TAB* 10 MG PO SCH (08:52)
[2019-07-23] MEDS: Pantoprazole TAB * 40 MG TAB PO SCH (08:52)
[2019-07-23] MEDS: Gabapentin CAP(*) 300 MG PO SCH ×2 (08:52→21:48)
[2019-07-23] MEDS ORDERED: Diazepam TAB(*) 5 MG PO PRN (14:58)
--- NOTE | 2019-07-23 14:58 | PN ---
Progress Note - Progress Note Date of Service: 07/23/19 SOAP: Subjective: [] severe pain episodes at night Objective: [] Temp Pulse Resp BP Pulse Ox 99.2 F 105 18 136/70 97 07/23/19 11:29 07/23/19 11:29 07/23/19 13:58 07/23/19 11:29 07/23/19 11:29 large ecchymosis right abdominal wall Assessment: []hematoma-pain Plan: []add muscle relaxant, and valium followup ct scan
[2019-07-23] MEDS ORDERED: tiZANidine TAB* 2 MG PO PRN (14:59)
[2019-07-23] MEDS ORDERED: tiZANidine TAB* 2 MG PO SCH (21:00)
[2019-07-23] MEDS: Lidocaine PATCH 5%* 1 PATCH TRANSDERM SCH (21:48)
[2019-07-24] MEDS: oxyCODONE/Acetamin 5/325 MG* TAB PO PRN ×4 (00:04→13:53)
[2019-07-24] MEDS: Levothyroxine TAB* 25 MCG TAB PO SCH (05:06)
[2019-07-24] MEDS: Clindamycin CAP* 150 MG PO SCH ×2 (05:06→13:54)
[2019-07-24] MEDS: Al Hydrox/Mg Hydrox/Simet LIQ* 30 ML UDC PO PRN (05:11)
[2019-07-24] MEDS: Lidocaine Patch REMOVE* 1 NOTE MISC PATCH OFF SCH (05:53)
[2019-07-24] MEDS: Lisinopril TAB* 10 MG PO SCH (08:25)
[2019-07-24] MEDS: Gabapentin CAP(*) 300 MG PO SCH (08:26)
[2019-07-24] MEDS: oxyCODONE SR TAB(*) 20 MG TAB.SR PO SCH (08:26)
[2019-07-24] MEDS: Pantoprazole TAB * 40 MG TAB PO SCH (08:26)
[2019-07-24] MEDS: Polyethylene Glycol 3350* 17 GM PACKET PO SCH (08:27)
--- NOTE | 2019-07-24 14:35 | PN ---
Progress Note - Progress Note Date of Service: 07/24/19 Note: S: POD #8. Pain continues, but she was able to get through the night without IV dilaudid. She did receive diazepam 5 mg x1. She has been using Percocet 5/325 q 4h pretty regularly. Lyla diet; having BMs. Ambulating. Would like to go home. O: Vital Signs - 8 hr 07/24/19 07/24/19 07/24/19 06:56 07:32 07:53 Temperature 97.1 F Pulse Rate 76 Respiratory 16 17 18 Rate Blood Pressure 107/57 (mmHg) O2 Sat by Pulse 98 Oximetry 07/24/19 07/24/19 07/24/19 08:00 08:26 10:37 Temperature Pulse Rate Respiratory 18 18 18 Rate Blood Pressure (mmHg) O2 Sat by Pulse Oximetry 07/24/19 07/24/19 12:09 13:53 Temperature 98.6 F Pulse Rate 83 Respiratory 16 18 Rate Blood Pressure 119/57 (mmHg) O2 Sat by Pulse 97 Oximetry Intake and Output Last 24 Hours 07/22/19 07/23/19 07/24/19 07/25/19 06:59 06:59 06:59 06:59 Intake Total 1340 1530 1040 720 Output Total 2100 1800 1400 500 Balance -760 -270 -360 220 Intake: Oral 1340 1530 1040 720 Output: Urine 2100 1800 1400 500 Other: Estimated Void Medium # Bowel Movements 1 1 Estimated Stool Amount Medium Large # Voids 1 Gen: WN obese female in NAD Heart: reg Lungs: clear Abd: ecchymosis as previously described; beginning to fade? Still moderate tenderness around lap port site w/ palp "mass", though softer. Remainder of abd soft, nontender. No new labs. CT 07/23: CT of the abdomen and pelvis was performed without oral or IV contrast administration. Coronal and sagittal reconstructed images were obtained. Comparison is made with previous exam dated July 18, 2019. The lung bases demonstrate no pleural fluid, nodules or masses. Scarring is noted in the lung bases. Heart demonstrates no pericardial effusion. Liver is normal in size. Patient is status post cholecystectomy. The pancreas demonstrates no mass or pancreatic duct dilatation. The spleen is normal in size. Patient is status post left nephrectomy. The right kidney shows no hydronephrosis. No retroperitoneal lymphadenopathy is noted. The urinary bladder is unremarkable. Again noted is diffuse edema in the right flank extending to the right anterior abdominal wall. There is likely infiltrative changes in the right rectus muscle but this appears to BE improved since previous exam. The maximum thickness previously measured up to 4.9 cm and now measures up to 3.5 cm. No obvious drainable fluid collections are noted. Subcutaneous edema also appears to BE improved since previous exam. No hernias are noted. The urinary bladder is otherwise unremarkable. IMPRESSION: Probable right rectus hematoma which appears to BE improved since previous exam with mixed maximal thickness measures 3.5 cm. Subcutaneous edema also appears to BE improved since previous exam. No intra-abdominal fluid collections are noted. No drainable fluid is identified. A: s/p lap abisai w/ postop abd wall hematoma, improving P: discussed w/ Dr. Jane and also with [facility] (with their approval of d/ c pain mgmt plan). I anticipate her to be back to her baseline regimen in ~ 1 week. Home today. Instructions reviewed. Office f/u 08/06.
[2019-07-24 15:13] VITALS: BP 123/64
--- NOTE | 2019-07-25 22:24 | DS ---
CC: [facility]; Rosa Wood NP * DISCHARGE SUMMARY: DATE OF ADMISSION: 07/14/19 DATE OF DISCHARGE: 07/24/19 ATTENDING SURGEON: Dr. Crescencio Jane * (DICTATED BY GUTIERREZ TAVAREZ) HOSPITAL COURSE: The patient was admitted to medical service on 07/14/19 with evidence of acute cholecystitis. There was some concern regarding the dilated common bile duct, but a subsequent MRCP was negative for common bile duct stones. She was taken to the operating room on 07/16/19 and underwent laparoscopic cholecystectomy with Dr. Jane. Surgery itself was uneventful. She had an initial uncomplicated postoperative course, but over the next 24 hours developed significantly increased right upper quadrant pain with a decrease in her hemoglobin from 12.3 preop to 9.1 the morning of 07/17/19. This decreased to 8.6 the next morning. Her vital signs remain stable, but a CT scan on 07/18/19 did confirm the presence of a moderately large abdominal wall hematoma. Pain management was difficult with oral pain medication alone and she did require significant amounts of IV Dilaudid. Eventually, she was transitioned to combination of long-acting oxycodone (20 mg OxyContin q.12 hours ) along with immediate release of Percocet. Pain seemed to particularly increase at night and the patient was anxious about having problems if she were discharged. Her other lab work was normal. Repeat CT on 07/23/19 showed similar findings with some improvement in the overall size of the hematoma. She was able to manage pain without IV pain medication for approximately 24 hours and was therefore discharged in the afternoon on 07/24/19. Her discharge pain regimen will consist of the followin. OxyContin 20 mg q.12 hours x1 week. 2. Percocet 5/325 1 or 2 tablets every 4 hours p.r.n. breakthrough pain. 3. Lidocaine patch 1 to 2 patches p.r.n. 12 hours on, 12 hours off. She will also resume her other usual medications with the exception of her baseline Percocet 7.5/325, which she will resume once she has finished the OxyContin and is no longer requiring higher doses of immediate release Percocet. She has an appointment with our office for followup on 08/06/[address] Jane. Instructions were reviewed. See also progress note from the same date. DISCHARGE: The patient is discharged to home in stable condition. GUTIERREZ TAVAREZ [id number]/[facility] #: [id number] MTDD
== END 2019-07-24 15:30 | disposition home or self-care (01) | DRG 263 ==
LOC: ED 17:06 → MEDTELE 22:49 → OBSVTOIN 07-15 16:02 → SSU 07-16 17:39
PROVIDERS: ADMIT Internal Medicine; ATTEND Surgery
PROC: 5A09357 Assistance with Respiratory Ventilation, Less than 24 Consecutive Hours, Continuous Positive Airway Pressure (ICD-10-PCS; 2019-07-15)
PROC: 0FT44ZZ Resection of Gallbladder, Percutaneous Endoscopic Approach (ICD-10-PCS; principal; 2019-07-16 14:30)
DX: K80.00 Calculus of gallbladder with acute cholecystitis without obstruction (principal); L76.32 Postprocedural hematoma of skin and subcutaneous tissue following other procedure; Z68.41 Body mass index [BMI] 40.0-44.9, adult; I10 Essential (primary) hypertension; K21.9 Gastro-esophageal reflux disease without esophagitis; E03.9 Hypothyroidism, unspecified; F41.9 Anxiety disorder, unspecified; F32.9 Major depressive disorder, single episode, unspecified; M79.7 Fibromyalgia; G89.29 Other chronic pain; M54.5 Low back pain; G47.33 Obstructive sleep apnea (adult) (pediatric); Z96.652 Presence of left artificial knee joint; E66.9 Obesity, unspecified; E04.1 Nontoxic single thyroid nodule; Y83.8 Other surgical procedures as the cause of abnormal reaction of the patient, or of later complication, without mention of misadventure at the time of the procedure; D64.9 Anemia, unspecified; Y92.234 Operating room of hospital as the place of occurrence of the external cause; J45.909 Unspecified asthma, uncomplicated; K58.9 Irritable bowel syndrome, unspecified; M19.90 Unspecified osteoarthritis, unspecified site; H26.9 Unspecified cataract; Z88.1 Allergy status to other antibiotic agents; Z85.3 Personal history of malignant neoplasm of breast; Z85.528 Personal history of other malignant neoplasm of kidney; Z90.13 Acquired absence of bilateral breasts and nipples; Z90.5 Acquired absence of kidney; Z90.710 Acquired absence of both cervix and uterus; Z98.1 Arthrodesis status; Z92.3 Personal history of irradiation; Z88.5 Allergy status to narcotic agent; Z88.8 Allergy status to other drugs, medicaments and biological substances; Z88.0 Allergy status to penicillin; Z88.2 Allergy status to sulfonamides; Z91.041 Radiographic dye allergy status; Z81.1 Family history of alcohol abuse and dependence; Z83.79 Family history of other diseases of the digestive system; Z87.891 Personal history of nicotine dependence; Z23 Encounter for immunization; Z87.442 Personal history of urinary calculi; Z82.49 Family history of ischemic heart disease and other diseases of the circulatory system; Z83.3 Family history of diabetes mellitus; Z82.3 Family history of stroke; Z80.3 Family history of malignant neoplasm of breast
CPT/HCPCS: 36415; 74176; 74181; 76376; 76705; 80053; 80061; 81003; 83605; 83690; 85014; 85018; 85025; 85610; 86140; 88304; 90686; 94660; 96365; 99284; A9270-GY; G0378; J1100; J1170; J1240; J1644; J1885; J2250; J2405; J2543; J2704; J3010; J3490